=== PATIENT | male | born 1950 | race Caucasian/White ===

== ENCOUNTER 2019-09-28 10:11 | Outpatient (CLI) | payer MEDICARE, BC, SELFPAY | END 2019-09-28 10:12 | disposition home or self-care (01) | PROVIDERS: Visit Provider Internal Medicine | DX: C85.90 Non-Hodgkin lymphoma, unspecified, unspecified site (principal); Z53.9 Procedure and treatment not carried out, unspecified reason | CPT/HCPCS: 99199 ==

== ENCOUNTER 2019-11-19 15:01 | Emergency (ER) | payer MEDICARE, BC, SELFPAY ==
--- NOTE | 2019-11-19 15:05 | ECG_ITS ---
Measurements Intervals [place] Rate: 59 P: -11 GA: 134 QRS: 14 QRSD: 98 T: 74 QT: 406 QTc: 403 Interpretive Statements SINUS BRADYCARDIA BORDERLINE ST-T WAVE ABNORMALITY- LATERAL LEADS BASELINE ARTIFACT- I, II, III, AVR, AVL, AVF, V1-V6 BORDERLINE ECG Electronically Signed On 11-20-2019 6:53:40 CRYSTAL LAPPER by Toby Matias D.O.
[2019-11-19 15:13] VITALS: BP 167/96; PULSE 65; RESP 16; TEMP 36.8; O2SAT 97
--- NOTE | 2019-11-19 15:39 | ED.GENADULT ---
HPI - General Adult General Chief complaint: Headache Stated complaint: dizzy, headache, nausea, vomitting History of Present Illness HPI narrative: 69 y.o. c/o pounding bitemporal headache, rated 8/10 associated with nausea, anorexia and photophobia, resembles previous migraines. No visual disturbances. Onset 2-3 days ago, mild, progressively worsened. Has had diarrhea x 4 days, ~ 4 BMs/day, no mucous or blood. For the past 3 days he has felt woozy and unsteady. Denies dizziness. Related Data Home Medications Medication Instructions Recorded Confirmed aripiprazole 10 mg PO DAILY 10/12/19 10/12/19 buspirone 10 mg PO TID 10/12/19 10/12/19 carvedilol [Coreg] 3.125 mg PO BID 10/12/19 10/12/19 ipratropium-albuterol 3 ml INHALATION Q6H PRN 10/12/19 10/12/19 lisinopril 5 mg PO DAILY 10/12/19 10/12/19 lovastatin 40 mg PO DAILY 10/12/19 10/12/19 oxycodone-acetaminophen 1 tablet PO Q4H PRN 10/12/19 10/12/19 tizanidine 2 mg PO Q6H PRN 10/12/19 10/12/19 topiramate 200 mg PO DAILY 10/12/19 10/12/19 warfarin 3 mg PO DAILY 10/12/19 10/12/19 warfarin 10 mg PO DAILY 10/12/19 10/12/19 Allergies Allergy/AdvReac Type Severity Reaction Status Date / Time No Known Allergies Allergy Mild Unverified 08/24/17 14:42 Review of Systems Constitutional: Constitutional: Reports fatigue, Denies fever(s) and Reports weakness Eyes: Eyes: Denies change in vision ENT: Denies dysphagia and Denies nasal congestion Cardiovascular: Cardiovascular: Denies chest pain and Denies radiating jaw, neck or arm pain Respiratory: Respiratory: Reports cough (chronic cough, no recent change. ) and Denies dyspnea Gastrointestinal: Gastrointestinal: Reports abdominal pain (Chronic, recurrent suprapubic pain x months. No recent change. ) Genitourinary: Genitourinary: Denies dysuria and Reports urinary frequency (urinates about every hour at night. ) Musculoskeletal: Comments: Chronic neck and low back pain secondary to DDD. Chronic knee pain. Scheduled steroid injection for next week. Followed in pain clinic. Integumentary/Breasts: Skin/Breast: Denies rash Neurologic: Denies focal weakness and Denies numbness Psychiatric: Comments: Has had some depression attributed to financial problems. Denies suicidal ideation Endocrine: Comments: Hx of Type 2 DM, controlled with wt. loss. Blood sugars range around 120-130. [facility] Past Medical History Medical History (Updated 11/19/19 @ 17:32 by Jose Wilson MD) DDD (degenerative disc disease), cervical DDD (degenerative disc disease), lumbar Depression DVT (deep venous thrombosis) Hyperlipidemia Hypertension Migraine Non-Hodgkin lymphoma Surgical History Surgical History History of laparotomy Social History Social History Social History: Lives alone in an apartment Years smoked: 55 Exam Const: General: alert Orientation/consciousness: patient oriented x3 HENMT: Head: normal to inspection Face and sinus: sinus tenderness (minor medial maxillary sinus tenderness. No temporal artery tenderness. ) Eyes: Pupils: Equal, round and reactive pupils present Direct Ophthalmoscopy: no photophobia and photophobia Neck: Neck: no lymphadenopathy Other: Tender along cervical paraspinal muscles. Able to rotate head ~ 60 degrees without c/o pain. Chest: Chest palpation & inspection: normal inspection of the chest Resp: Effort & Inspection: normal respiratory effort Auscultation: clear to auscultation bilaterally Cardio: Rhythm: regular rhythm Heart sounds: Murmur heart sound present ( ) systolic mid, soft, II/, at the apex, at the base and at the left sternal border GI: GI Palp: Yes Soft to palpation, Yes Tenderness to palpation present (GI) (deep palpation, suprapubic area. ) and No Rebound tenderness present Other: no masses Back/Spine/Pelvis: Back: no CVA tenderness Skin: General sk
[2019-11-19] MEDS: SODIUM CHLORIDE 0.9% IV 1,000 ML 999 ML IV CONT (15:43)
[2019-11-19] MEDS: METOCLOPRAMIDE HCL INJ 10 MG/2 ML VIAL 20 MG IV PUSH (15:44)
[2019-11-19 15:47] LABS: Basophils Absolute Auto 0.05 K/mm3 (0.00-0.10); Basophils Percent Auto 0.8 % (0.0-1.0); Eosinophils Absolute Auto 0.18 K/mm3 (0.02-0.50); Eosinophils Percent Auto 2.8 % (1.0-6.0); Hematocrit 42.3 % (37.0-46.0); Hemoglobin 14.8 g/dL (12.4-15.3); Immature Granulocyte Absolute 0.03 K/mm3 (0.00-0.00); Immature Granulocyte Percent A 0.5 % (0.0-0.0); Lymphocytes Absolute Auto 0.98 K/mm3 (1.10-4.50); Lymphocytes Percent Auto 15.2 % (18.0-42.0); Mean Corpuscular Hemoglobin 31.3 pg (27.0-31.0); Mean Corpuscular Volume 89.4 fL (78.0-102.0); Mean Platelet Volume 10.9 fl (8.7-11.0); Monocytes Absolute Auto 0.67 K/mm3 (0.10-0.90); Monocytes Percent Auto 10.4 % (2.0-11.0); Neutrophils Absolute Auto 4.5 K/mm3 (1.7-7.2); Neutrophils Percent Auto 70.3 % (50.0-70.0); Platelet Count Result 129 K/mm3 (150-420); Red Blood Count 4.73 M/mm3 (4.70-6.10); Red Cell Distribution Width 13.4 % (11.6-14.4); White Blood Count 6.4 K/mm3 (4.8-10.8)
[2019-11-19 16:07] LABS: Add Urine Microscopic? YES; Appearance Urine Clear (Clear); Bilirubin Urine Negative (Negative); Blood Urine 2+ (Negative); Color Urine Yellow (Yellow); Glucose Urine UA Negative (Negative); Ketones Urine Negative (Negative); Leukocyte Esterase Ur Negative (Negative); Nitrate Urine Negative (Negative); Protein Urine Negative (Negative); Urobilinogen Urine 0.2 mg/dL (0.2-1.0)
[2019-11-19 16:08] LABS: Anion Gap 14.5 mmol/L (7-16); Blood Urea Nitrogen 12 mg/dL (7-18); Carbon Dioxide 26 mmol/L (21-32); Chloride 108 mmol/L (98-108); Estimated Glomerular Filt Rate 59; Glucose 100 mg/dL (70-99); Osmolality Calculated 299 mOsm/kg (285-295); Potassium 3.5 mmol/L (3.5-5.1); Sodium 145 mmol/L (136-145)
[2019-11-19 16:11] LABS: Troponin I < 0.02 ng/mL (0.00-0.056)
[2019-11-19 16:14] LABS: RBC Urine 0-2 /hpf (0-2); WBC Urine 0-3 /hpf (0-3)
[2019-11-19 16:15] LABS: Transitional Epi Cells Urine Few /hpf
[2019-11-19] MEDS: METOCLOPRAMIDE HCL INJ 10 MG/2 ML VIAL IV PUSH (16:40)
[2019-11-19 16:49] VITALS: BP 166/87; PULSE 62; O2SAT 95
[2019-11-19] MEDS: CYCLOBENZAPRINE HCL 5 MG TABLET PO (17:38)
[2019-11-19 17:45] VITALS: BP 139/67; PULSE 63; O2SAT 97
== END 2019-11-19 17:46 | disposition home or self-care (01) ==
PROVIDERS: Emergency Provider Family Medicine; PCP Internal Medicine
DX: R11.0 Nausea (principal); G44.89 Other headache syndrome; Z86.718 Personal history of other venous thrombosis and embolism; Z79.01 Long term (current) use of anticoagulants; E78.5 Hyperlipidemia, unspecified; I10 Essential (primary) hypertension
CPT/HCPCS: 36415; 80048; 81001; 84484; 85025; 93005; 96361; 96374; 96375; 96376; 99283; 99284; A9270; J1200; J2765; J7030

== ENCOUNTER 2019-11-24 10:29 | Outpatient (RCR) | payer MEDICARE, SELFPAY ==
[2019-09-07 11:36] LABS: INR 1.3; Prothrombin Time 13.9 Seconds (9.64-11.0)
[2019-09-11 08:20] LABS: INR 1.6; Prothrombin Time 16.5 Seconds (9.64-11.0)
[2019-10-11 12:05] LABS: INR 2.8; Prothrombin Time 29.3 Seconds (9.64-11.0)
[2019-11-24 11:27] LABS: INR 2.8; Prothrombin Time 28.2 Seconds (9.64-11.0)
== END 2019-12-06 23:59 | disposition home or self-care (01) ==
LOC: CHSLAB 10:29
PROVIDERS: PCP Internal Medicine; Visit Provider Internal Medicine
DX: Z79.01 Long term (current) use of anticoagulants (principal)
CPT/HCPCS: 36415; 85610

== ENCOUNTER 2019-11-25 07:38 | Outpatient (CLI) | payer MEDICARE, BC, SELFPAY | END 2019-11-25 07:39 | disposition home or self-care (01) | LOC: CHSIMG 07:43 | PROVIDERS: PCP Internal Medicine | DX: Z53.8 Procedure and treatment not carried out for other reasons (principal) | CPT/HCPCS: 99199 ==

== ENCOUNTER 2019-12-06 06:35 | Emergency (ER) | payer MEDICARE, BC, SELFPAY ==
[2019-12-06 06:53] VITALS: BP 182/90; PULSE 72; RESP 18; TEMP 36.6; O2SAT 97
--- NOTE | 2019-12-06 07:06 | ED.DENTAL ---
HPI - Dental/Oral General Chief complaint: Dental/Oral Stated complaint: gums still bleeding from teeth extraction Time Seen by Provider: 12/06/19 07:06 Source: patient and RN notes reviewed Mode of arrival: ambulatory Limitations: no limitations History of Present Illness HPI Narrative: Mouth bleeding after dental extraction. Patient states that he did not stop his Coumadin prior to his dental procedure. Says he has been having some slow bleeding overnight. Workup was some blood on his mouth. Blood on his clothes. He says his Coumadin level has been stable for several months. Onset (ago): hour(s) (12) Duration: constant (slow bleeding) Severity: mild Context: history of dental caries Related Data Home Medications Medication Instructions Recorded Confirmed aripiprazole 10 mg PO DAILY 10/12/19 12/06/19 buspirone 10 mg PO TID 10/12/19 12/06/19 carvedilol [Coreg] 3.125 mg PO BID 10/12/19 12/06/19 ipratropium-albuterol 3 ml INHALATION Q6H PRN 10/12/19 12/06/19 lisinopril 5 mg PO DAILY 10/12/19 12/06/19 oxycodone-acetaminophen 1 tablet PO Q4H PRN 10/12/19 12/06/19 tizanidine 2 mg PO Q6H PRN 10/12/19 12/06/19 topiramate 200 mg PO DAILY 10/12/19 12/06/19 warfarin 3 mg PO DAILY 10/12/19 12/06/19 warfarin 10 mg PO DAILY 10/12/19 12/06/19 Allergies Allergy/AdvReac Type Severity Reaction Status Date / Time No Known Allergies Allergy Mild Unverified 08/24/17 14:42 Review of Systems Review of Systems: All systems reviewed & are unremarkable except as noted in HPI and below PMFSH Past Medical History Medical History DDD (degenerative disc disease), cervical DDD (degenerative disc disease), lumbar Depression DVT (deep venous thrombosis) Hyperlipidemia Hypertension Migraine Non-Hodgkin lymphoma Surgical History Surgical History History of laparotomy Social History Social History Social History: Lives alone in an apartment Years smoked: 55 Exam Const: General: healthy appearing, no acute distress and alert Nutritional Appearance: well nourished and obese centrally obese Orientation/consciousness: patient oriented x3 HENMT: Head: normal to inspection Ears: hearing grossly normal bilaterally and external ears normal General nose exam: Normal external nose present Teeth and gingiva: abnormal tooth and associated gingiva Other: I removed 4 x 4 from bleeding gum on right upper canine area. Sutures are in place with a small amount of bleeding from the gum. Replaced 4 x 4 an aspiration to hold pressure by biting down. Eyes: Conjunctivae: conjunctivae normal Pupils: Equal, round and reactive pupils present EOM: EOMs intact bilaterally Neck: Neck: normal visual inspection Resp: Auscultation: rhonchi (Mild diffuse) Cardio: Rate: regular rate Rhythm: regular rhythm GI: Auscultation: normal bowel sounds Skin: General skin exam: normal color Rashes: no rashes Neuro: General: patient oriented x3, moves all extremities and no focal motor deficits Speech: normal speech Extrem: General: normal to inspection Psych: Appearance: grossly normal Mental Status: mental status grossly normal Affect: normal affect Attitude: cooperative Thought content: Yes Normal thought content present Course Course Emergency Course: Explained to patient that I am unable to place any more sutures in this area. He states that his Coumadin level is normal. Explained that he needed to see the dentist to possibly over sew this area some more. He will contact them today. If I use any cautery I may cause the sutures to break and therefore he would bleed more. Vital Signs Vital signs: Vital Signs Temperature 36.6 C 12/06/19 06:53 Pulse Rate 72 12/06/19 06:53 Respiratory Rate 18 12/06/19 06:53 Blood Pressure 182/90 H 12/06/19 06:53 Pulse Oximetry 97 02
[2019-12-06 07:19] VITALS: BP 124/67; PULSE 82; RESP 20; O2SAT 97
== END 2019-12-06 07:24 | disposition home or self-care (01) ==
PROVIDERS: Emergency Provider Emergency Medicine; PCP Internal Medicine
DX: L76.22 Postprocedural hemorrhage of skin and subcutaneous tissue following other procedure (principal)
CPT/HCPCS: 99281; 99282

== ENCOUNTER 2019-12-07 13:15 | Outpatient (CLI) | payer MEDICARE, BC, SELFPAY ==
--- NOTE | ~2019-12-07 | MR_ITS ---
EXAMINATION: MR cervical spine wo con DATE: 12/07/2019 14:44 INDICATION: Cervical radiculopathy. TECHNIQUE: Magnetic resonance imaging (MRI) of the cervical spine was performed without intravenous c ontrast. Sequences included sagittal T2-weighted FSE, sagittal T2-weighted FS FSE, sagittal T1-weight ed FSE, axial MERGE, and axial T2-weighted FSE. COMPARISON: Cervical spine MRI 08/24/2011 FINDINGS: There is kyphosis of cervical spine. There is 2 mm anterolisthesis of C7 on T1. There is ch ronic anterior wedging of T1 and T2 vertebral bodies. There is mildly decreased disc height at C3-C4 and moderately decreased disc height from C4-C5 through C6-C7. The spinal cord signal intensity is no rmal. The following disc levels are specifically discussed: C2-C3: The disc does not extend beyond the endplate margin. There is no uncovertebral joint osteoarth ritis. There is severe right and moderate left facet joint osteoarthritis. There is no neural foramin al stenosis. There is no central canal stenosis. C3-C4: The disc is bulging. There is severe bilateral uncovertebral joint osteoarthritis. There is se rinku bilateral facet joint osteoarthritis. There is moderate right and mild left neural foraminal batool nosis. There is mild central canal stenosis. C4-C5: The disc is bulging. There is severe bilateral uncovertebral joint osteoarthritis. There is mo derate right and severe left facet joint osteoarthritis. There is moderate and severe left neural for aminal stenosis. There is mild central canal stenosis with ventral indentation of the spinal cord. C5-C6: The disc is bulging. There is severe bilateral uncovertebral joint osteoarthritis. There is mi ld bilateral facet joint osteoarthritis. There is severe right and moderate left neural foraminal batool nosis. There is mild central canal stenosis. C6-C7: The disc is bulging. There is moderate bilateral uncovertebral joint osteoarthritis. There is mild bilateral facet joint osteoarthritis. There is mild left neural foraminal stenosis. There is mil d central canal stenosis. C7-T1: The disc does not extend beyond the endplate margin. There is no uncovertebral joint osteoarth ritis. There is severe bilateral facet joint osteoarthritis. There is mild bilateral neural foraminal stenosis. There is no central canal stenosis. IMPRESSION: 1. Severe cervical spondylosis, worsened from 08/24/2011. Reviewed, dictated and finalized at location A. O/VISUAL OPERATOR
== END 2019-12-07 13:16 | disposition home or self-care (01) ==
LOC: ANHIMG 13:18
PROVIDERS: PCP Internal Medicine; Visit Provider Anesthesiology
DX: M47.22 Other spondylosis with radiculopathy, cervical region (principal)
CPT/HCPCS: 72141

== ENCOUNTER 2019-12-19 13:18 | Outpatient (RCR) | payer MEDICARE, SELFPAY | END 2020-03-18 23:59 | disposition home or self-care (01) | LOC: CHSLAB 13:18 | PROVIDERS: PCP Internal Medicine; Visit Provider Internal Medicine | DX: Z79.01 Long term (current) use of anticoagulants (principal) | CPT/HCPCS: 36415; 85610 ==

== ENCOUNTER 2020-01-02 11:11 | Outpatient (CLI) | payer MEDICARE, SELFPAY ==
[2020-01-02 11:24] LABS: Basophils Absolute Auto 0.03 K/mm3 (0.00-0.10); Basophils Percent Auto 0.5 % (0.0-1.0); Eosinophils Absolute Auto 0.18 K/mm3 (0.02-0.50); Hematocrit 40.8 % (37.0-46.0); Hemoglobin 13.8 g/dL (12.4-15.3); Immature Granulocyte Absolute 0.01 K/mm3 (0.00-0.00); Immature Granulocyte Percent A 0.2 % (0.0-0.0); Lymphocytes Absolute Auto 0.82 K/mm3 (1.10-4.50); Lymphocytes Percent Auto 13.7 % (18.0-42.0); Mean Corpuscular HGB Conc 33.8 g/dL (32.0-36.0); Mean Corpuscular Hemoglobin 31.3 pg (27.0-31.0); Mean Corpuscular Volume 92.5 fL (78.0-102.0); Mean Platelet Volume 10.2 fl (8.7-11.0); Monocytes Absolute Auto 0.57 K/mm3 (0.10-0.90); Monocytes Percent Auto 9.5 % (2.0-11.0); Neutrophils Absolute Auto 4.4 K/mm3 (1.7-7.2); Neutrophils Percent Auto 73.1 % (50.0-70.0); Platelet Count Result 149 K/mm3 (150-420); Red Blood Count 4.41 M/mm3 (4.70-6.10); Red Cell Distribution Width 13.8 % (11.6-14.4)
[2020-01-02 11:42] LABS: INR 2.3
[2020-01-02 12:07] LABS: Alanine Aminotransferase 27 U/L (16-63); Albumin Level 3.5 g/dL (3.4-5.0); Alkaline Phosphatase 86 U/L (46-116); Anion Gap 10.5 mmol/L (7-16); Aspartate Amino Transferase 16 U/L (15-37); Bilirubin,Total 0.2 mg/dL (0.00-1.00); Blood Urea Nitrogen 12 mg/dL (7-18); Calcium 8.6 mg/dL (8.5-10.1); Carbon Dioxide 29 mmol/L (21-32); Chloride 107 mmol/L (98-108); Estimated Glomerular Filt Rate > 60; Glucose 88 mg/dL (70-99); Lactate Dehydrogenase 186 U/L (85-227); Osmolality Calculated 292 mOsm/kg (285-295); Potassium 4.5 mmol/L (3.5-5.1); Sodium 142 mmol/L (136-145); Total Protein 6.1 g/dL (6.4-8.2)
== END 2020-01-02 11:12 | disposition home or self-care (01) ==
LOC: CHSLAB 11:13
PROVIDERS: PCP Internal Medicine; Visit Provider Internal Medicine Hematology & Oncology
DX: Z79.01 Long term (current) use of anticoagulants (principal); C85.10 Unspecified B-cell lymphoma, unspecified site
CPT/HCPCS: 36415; 80053; 83615; 85025; 85610

== ENCOUNTER 2020-04-10 09:54 | Outpatient (CLI) | payer MEDICARE, SELFPAY ==
[2020-04-10 10:06] LABS: Basophils Absolute Auto 0.05 K/mm3 (0.00-0.10); Basophils Percent Auto 0.7 % (0.0-1.0); Eosinophils Absolute Auto 0.19 K/mm3 (0.02-0.50); Eosinophils Percent Auto 2.6 % (1.0-6.0); Hematocrit 46.8 % (37.0-46.0); Hemoglobin 15.8 g/dL (12.4-15.3); Immature Granulocyte Absolute 0.04 K/mm3 (0.00-0.00); Immature Granulocyte Percent A 0.5 % (0.0-0.0); Immature Platelet Fraction Pct 3.8 % (1.0-7.0); Lymphocytes Absolute Auto 0.99 K/mm3 (1.10-4.50); Lymphocytes Percent Auto 13.4 % (18.0-42.0); Mean Corpuscular HGB Conc 33.8 g/dL (32.0-36.0); Mean Corpuscular Hemoglobin 30.5 pg (27.0-31.0); Mean Corpuscular Volume 90.3 fL (78.0-102.0); Mean Platelet Volume 10.9 fl (8.7-11.0); Monocytes Absolute Auto 0.71 K/mm3 (0.10-0.90); Monocytes Percent Auto 9.6 % (2.0-11.0); Neutrophils Absolute Auto 5.4 K/mm3 (1.7-7.2); Neutrophils Percent Auto 73.2 % (50.0-70.0); Platelet Count Result 133 K/mm3 (150-420); Red Blood Count 5.18 M/mm3 (4.70-6.10); Red Cell Distribution Width 13.2 % (11.6-14.4); White Blood Count 7.4 K/mm3 (4.8-10.8)
[2020-04-10 11:14] LABS: Alanine Aminotransferase 33 U/L (16-63); Albumin Level 3.8 g/dL (3.4-5.0); Alkaline Phosphatase 101 U/L (46-116); Anion Gap 12.4 mmol/L (7-16); Aspartate Amino Transferase 17 U/L (15-37); Bilirubin,Total 0.3 mg/dL (0.00-1.00); Blood Urea Nitrogen 14 mg/dL (7-18); Calcium 8.8 mg/dL (8.5-10.1); Carbon Dioxide 28 mmol/L (21-32); Chloride 103 mmol/L (98-108); Estimated Glomerular Filt Rate > 60; Glucose 108 mg/dL (70-99); Lactate Dehydrogenase 218 U/L (85-227); Osmolality Calculated 289 mOsm/kg (285-295); Potassium 4.4 mmol/L (3.5-5.1); Sodium 139 mmol/L (136-145); Total Protein 6.3 g/dL (6.4-8.2)
== END 2020-04-10 09:55 | disposition home or self-care (01) ==
PROVIDERS: PCP Internal Medicine; Visit Provider Internal Medicine Hematology & Oncology
DX: C85.10 Unspecified B-cell lymphoma, unspecified site (principal)
CPT/HCPCS: 36415; 80053; 83615; 85025; 85055

== ENCOUNTER 2020-04-22 13:06 | Outpatient (RCR) | payer MEDICARE, SELFPAY ==
[2020-03-25 11:21] LABS: INR 2.1; Prothrombin Time 21.3 Seconds (9.64-11.0)
[2020-04-22 13:35] LABS: INR 4.2; Prothrombin Time 41.1 Seconds (9.64-11.0)
== END 2020-06-23 23:59 | disposition home or self-care (01) ==
LOC: CHSLAB 13:06
PROVIDERS: PCP Internal Medicine; Visit Provider Internal Medicine
DX: Z79.01 Long term (current) use of anticoagulants (principal)
CPT/HCPCS: 36415; 85610

== ENCOUNTER 2020-07-10 12:03 | Outpatient (CLI) | payer MEDICARE, BC, SELFPAY ==
--- NOTE | ~2020-07-10 | US_ITS ---
EXAMINATION: US carotid duplex BI DATE: 07/10/2020 12:31 INDICATION: Carotid stenosis TECHNIQUE: Grayscale, color Doppler, and pulsed Doppler images of the cervical carotid arteries were obtained. The degree of vessel stenosis is placed in one of the following categories: normal, <50%, 5 0-69%, >=70% but less than near-occlusion, near-occlusion, or total occlusion. Note that percent sten osis relative to normal distal artery lumen diameter is indirectly measured from velocity measurement s as described by Gaurav, et al. Radiology 2003; 229:340-346. Notes: Normal: Peak systolic velocity <125 centimeters/sec and no plaque <50%. Peak systolic velocity <125 ( EDV <40; ICA/CCA PSV ratio <2.0; used these factors only a tandem lesions or low cardiac output or co ntralateral disease) 50-69 %: PSV 125-230 (EDV 40-100; ratio 2-4) >= 70% but less than near occlusion: PSV greater than 230 (EDV > 100; ratio> 4.0) Near Occlusion: PSV that is variable; markedly narrowed lumen Occlusion: Absent flow on color/spectral Doppler and no lumen on dow scale. COMPARISON: No prior studies for comparison. . FINDINGS: RIGHT: The right common carotid artery (CCA) peak systolic velocity (PSV) is 79 cm/s. The right internal car otid artery (ICA) PSV is 77 cm/s. The right ICA end-diastolic velocity (EDV) is 15 cm/s. The right IC A/CCA PSV ratio is 1.0. The external carotid artery (ECA) PSV is 108 cm/s. There is antegrade flow in the right vertebral artery. LEFT: The left CCA PSV is 77 cm/s. The left ICA PSV is 74 cm/s. The left ICA EDV is 21 cm/s. The left ICA/C CA PSV ratio is 1.0. The ECA PSV is 110 cm/s. There is antegrade flow in the left vertebral artery. IMPRESSION: 1. Less than 50% stenosis in the right internal carotid artery by sonographic criteria. 2. Less than 50% stenosis in the left internal carotid artery by sonographic criteria. Reviewed, dictated and finalized at location B. IMPRESSION: 1. Less than 50% stenosis in the right internal carotid artery by sonographic c lisa. 2. Less than 50% stenosis in the left internal carotid artery by sonographic cr ama.
== END 2020-07-10 12:04 | disposition home or self-care (01) ==
LOC: CHSIMG 12:04
PROVIDERS: PCP Internal Medicine; Visit Provider Specialist
DX: I65.29 Occlusion and stenosis of unspecified carotid artery (principal)
CPT/HCPCS: 93880

== ENCOUNTER 2020-07-19 11:15 | Outpatient (CLI) | payer MEDICARE, BC, SELFPAY ==
--- NOTE | ~2020-07-19 | XR_ITS ---
EXAMINATION: XR chest 2V EXAM DATE: 07/19/2020 12:02 INDICATION: COPD. TECHNIQUE: Frontal and lateral projections of the chest obtained and reviewed. Comparison is made to prior examination from 04/03/2019. FINDINGS: Right-sided portacatheter, intact line. The lungs are clear. There are no pleural effusio ns. Lower thoracic kyphosis. There is no pneumothorax suspected. There are bony degenerative mustafa es. IMPRESSION: No acute cardiopulmonary findings. Reviewed, dictated and finalized at location B.
[2020-07-19 11:50] LABS: Basophils Absolute Auto 0.04 K/mm3 (0.00-0.10); Basophils Percent Auto 0.7 % (0.0-1.0); Eosinophils Absolute Auto 0.17 K/mm3 (0.02-0.50); Eosinophils Percent Auto 2.8 % (1.0-6.0); Hematocrit 44.2 % (37.0-46.0); Hemoglobin 14.9 g/dL (12.4-15.3); Immature Granulocyte Absolute 0.02 K/mm3 (0.00-0.00); Immature Granulocyte Percent A 0.3 % (0.0-0.0); Lymphocytes Absolute Auto 0.78 K/mm3 (1.10-4.50); Lymphocytes Percent Auto 12.7 % (18.0-42.0); Mean Corpuscular HGB Conc 33.7 g/dL (32.0-36.0); Mean Corpuscular Hemoglobin 30.1 pg (27.0-31.0); Mean Corpuscular Volume 89.3 fL (78.0-102.0); Mean Platelet Volume 11.1 fl (8.7-11.0); Monocytes Absolute Auto 0.55 K/mm3 (0.10-0.90); Monocytes Percent Auto 8.9 % (2.0-11.0); Neutrophils Absolute Auto 4.6 K/mm3 (1.7-7.2); Neutrophils Percent Auto 74.6 % (50.0-70.0); Platelet Count Result 146 K/mm3 (150-420); Red Blood Count 4.95 M/mm3 (4.70-6.10); Red Cell Distribution Width 13.6 % (11.6-14.4); White Blood Count 6.2 K/mm3 (4.8-10.8)
[2020-07-19 11:58] LABS: Anion Gap 8 mmol/L (8-16); Blood Urea Nitrogen 17 mg/dL (7-18); Calcium 8.9 mg/dL (8.5-10.1); Carbon Dioxide 29 mmol/L (21-32); Chloride 107 mmol/L (98-108); Estimated Glomerular Filt Rate > 60; Glucose 122 mg/dL (70-99); Osmolality Calculated 300 mOsm/kg (285-295); Potassium 3.9 mmol/L (3.5-5.1); Sodium 144 mmol/L (136-145)
[2020-07-19 12:06] LABS: INR 4.3; Prothrombin Time 42.2 Seconds (9.64-11.0)
== END 2020-07-19 11:16 | disposition home or self-care (01) ==
PROVIDERS: PCP Internal Medicine; Visit Provider Internal Medicine
DX: Z79.01 Long term (current) use of anticoagulants (principal); J44.1 Chronic obstructive pulmonary disease with (acute) exacerbation
CPT/HCPCS: 36415; 71046; 80048; 85025; 85610

== ENCOUNTER 2020-10-02 08:03 | Outpatient (CLI) | payer MEDICARE, BC, SELFPAY ==
--- NOTE | ~2020-10-02 | CT_ITS ---
EXAMINATION: CT chest abdomen pelvis w con DATE: 10/02/2020 09:08 INDICATION: B-cell lymphoma restaging TECHNIQUE: Computed tomography (CT) of the chest, abdomen, and pelvis was performed with 100 cc Omnip aque 350 intravenous contrast. Automated exposure control and iterative reconstruction technique were employed. Exam dose: 2010.12 mGy-cm total exam DLP. COMPARISON: 09/19/2019 CT chest abdomen pelvis FINDINGS: CHEST CT: There is lingular discoid atelectasis or scarring. There is mild infiltrate or atelectasis in the dependent right lower lobe at the base of the lung. There are calcified pulmonary granulomas the middle and bilateral lower lobes. There are calcified me diastinal and bilateral hilar nodes and calcified splenic granulomas. Findings are consistent with ol d granulomatous disease. No pulmonary infiltrate or consolidation or pulmonary mass lesion is noted otherwise. Normal heart size. Left ventricular hypertrophy. There is coronary artery calcification. There is aor tic and great vessel calcification. No thoracic aortic aneurysm or dissection. No hilar or mediastinal mass lesion or lymphadenopathy. No axillary lymphadenopathy. ABDOMEN/PELVIS CT: Status post cholecystectomy. No bile duct or pancreatic duct dilatation. No hepatic, pancreatic, splenic, adrenal space-occupying mass lesion. Again noted are bilateral renal cysts, including the followin.5 cm and 8 mm exophytic stable cysts of the lower pole of the right kidney. Additional approximatel y 1 cm posterior medial lower pole right renal cysts is again noted. There is an exophytic approximately 2.2 cm mass with attenuation of approximately 69 Hounsfield units at the lateral aspect of the mid to upper left kidney. This is stable compared to 09/19/2019, previo usly attributed to hemorrhagic cyst. 11 mm lower pole left renal cyst. There are several nonobstructing left renal calculi, the largest at the lower pole, measuring approxi mately 5.2 x 7.2 mm with attenuation of 787 Hounsfield units. No ureteral calculus or hydroureteronephrosis is detected. There is prostate enlargement and calcification. There is moderate diffuse thickening of the urinary bladder wall. The bladder is relatively evacuated and there is no contrast material in the urinary bl adder lumen, limiting evaluation of the bladder. There is extensive calcification of the abdominal aorta and aortic branches. There is ectasia of the infrarenal abdominal aorta. No intraperitoneal or retroperitoneal or pelvic mass lesion or adenopathy or ascites. Normal appendix. There is diverticulosis of the colon; no CT evidence of diverticulitis. No bowel obs truction, bowel wall thickening, pneumatosis or intraperitoneal free air. There are surgical clips within the right peritoneal cavity radiopaque sutures and surgical scar silas g the right anterior parasagittal abdominal wall. Old healed rib fracture deformities. Severe degenerative disc disease of the lumbar spine, with associated mild retrolisthesis at L1-2, L2 -3.. Bilateral L5 pars interarticularis defects and grade 2 anterolisthesis and severe degenerative disc d isease at L5-S1. There are multiple compression fracture deformities including L1, T12, T11. IMPRESSION: No evidence of thoracic, abdominal or pelvic lymphadenopathy Bilateral renal cysts Nonobstructive left nephrolithiasis Diverticulosis of the colon Prostate enlargement and calcification, bladder wall thickening Reviewed, dictated and finalized at Location A. Reviewed, dictated and finalized at location A. RDOUS WASTE MANAGEMENT SPECIALIST
[2020-10-02 08:25] LABS: Estimated Glomerular Filt Rate > 60
[2020-10-02 08:31] LABS: INR 1.2; Prothrombin Time 13.6 Seconds (9.50-12.10)
== END 2020-10-02 08:04 | disposition home or self-care (01) ==
PROVIDERS: PCP Internal Medicine; Visit Provider Internal Medicine Hematology & Oncology
DX: C85.10 Unspecified B-cell lymphoma, unspecified site (principal); Z79.01 Long term (current) use of anticoagulants
CPT/HCPCS: 71260; 74177; 85610; Q9965; Q9967

== ENCOUNTER 2020-10-10 08:25 | Outpatient (CLI) | payer MEDICARE, SELFPAY ==
[2020-10-10 08:34] LABS: Basophils Absolute Auto 0.05 K/mm3 (0.00-0.10); Basophils Percent Auto 0.6 % (0.0-1.0); Eosinophils Percent Auto 2.6 % (1.0-6.0); Hematocrit 45.1 % (37.0-46.0); Hemoglobin 14.7 g/dL (12.4-15.3); Immature Granulocyte Absolute 0.04 K/mm3 (0.00-0.00); Immature Granulocyte Percent A 0.5 % (0.0-0.0); Lymphocytes Absolute Auto 1.33 K/mm3 (1.10-4.50); Lymphocytes Percent Auto 17.2 % (18.0-42.0); Mean Corpuscular HGB Conc 32.6 g/dL (32.0-36.0); Mean Corpuscular Hemoglobin 29.6 pg (27.0-31.0); Mean Corpuscular Volume 90.7 fL (78.0-102.0); Mean Platelet Volume 11.2 fl (8.7-11.0); Monocytes Percent Auto 10.4 % (2.0-11.0); Neutrophils Absolute Auto 5.3 K/mm3 (1.7-7.2); Neutrophils Percent Auto 68.7 % (50.0-70.0); Platelet Count Result 143 K/mm3 (150-420); Red Blood Count 4.97 M/mm3 (4.70-6.10); Red Cell Distribution Width 13.3 % (11.6-14.4); White Blood Count 7.7 K/mm3 (4.8-10.8)
[2020-10-10 09:32] LABS: Alanine Aminotransferase 28 U/L (16-63); Albumin Level 3.8 g/dL (3.4-5.0); Alkaline Phosphatase 78 U/L (46-116); Anion Gap 6 mmol/L (8-16); Aspartate Amino Transferase 15 U/L (15-37); Bilirubin,Total 0.3 mg/dL (0.00-1.00); Blood Urea Nitrogen 12 mg/dL (7-18); Calcium 8.8 mg/dL (8.5-10.1); Carbon Dioxide 29 mmol/L (21-32); Chloride 105 mmol/L (98-108); Estimated Glomerular Filt Rate > 60; Glucose 81 mg/dL (70-99); Lactate Dehydrogenase 216 U/L (85-227); Osmolality Calculated 288 mOsm/kg (285-295); Potassium 4.5 mmol/L (3.5-5.1); Sodium 140 mmol/L (136-145); Total Protein 6.6 g/dL (6.4-8.2)
== END 2020-10-10 08:26 | disposition home or self-care (01) ==
LOC: CHSLAB 08:26
PROVIDERS: PCP Internal Medicine; Visit Provider Internal Medicine Hematology & Oncology
DX: C85.10 Unspecified B-cell lymphoma, unspecified site (principal)
CPT/HCPCS: 36415; 80053; 83615; 85025

== ENCOUNTER 2020-10-15 07:10 | Outpatient (CLI) | payer MEDICARE, SELFPAY ==
[2020-10-15 07:30] LABS: Basophils Absolute Auto 0.04 K/mm3 (0.00-0.10); Basophils Percent Auto 0.5 % (0.0-1.0); Eosinophils Absolute Auto 0.14 K/mm3 (0.02-0.50); Eosinophils Percent Auto 1.8 % (1.0-6.0); Hematocrit 45.8 % (37.0-46.0); Hemoglobin 15.2 g/dL (12.4-15.3); Immature Granulocyte Absolute 0.03 K/mm3 (0.00-0.00); Immature Granulocyte Percent A 0.4 % (0.0-0.0); Lymphocytes Absolute Auto 0.97 K/mm3 (1.10-4.50); Lymphocytes Percent Auto 12.7 % (18.0-42.0); Mean Corpuscular HGB Conc 33.2 g/dL (32.0-36.0); Mean Corpuscular Hemoglobin 29.6 pg (27.0-31.0); Mean Corpuscular Volume 89.3 fL (78.0-102.0); Mean Platelet Volume 11.1 fl (8.7-11.0); Monocytes Absolute Auto 0.61 K/mm3 (0.10-0.90); Neutrophils Absolute Auto 5.9 K/mm3 (1.7-7.2); Neutrophils Percent Auto 76.6 % (50.0-70.0); Platelet Count Result 128 K/mm3 (150-420); Red Blood Count 5.13 M/mm3 (4.70-6.10); Red Cell Distribution Width 13.3 % (11.6-14.4); White Blood Count 7.7 K/mm3 (4.8-10.8)
[2020-10-15 07:33] LABS: Appearance Urine Clear (Clear); Bilirubin Urine Negative (Negative); Color Urine Yellow (Yellow); Glucose Urine UA Negative (Negative); Ketones Urine Negative (Negative); Leukocyte Esterase Ur Negative (Negative); Nitrate Urine Negative (Negative); Protein Urine Negative (Negative); Specific Grav Ur 1.015 (1.010-1.020); Urobilinogen Urine 0.2 mg/dL (0.2-1.0); pH Urine 7.5 (5.0-8.0)
[2020-10-15 07:38] LABS: Hemoglobin A1C 5.6 % (<5.7)
[2020-10-15 07:41] LABS: Add Urine Microscopic? YES; Bacteria Urine None seen /hpf; Blood Urine Trace-Intact (Negative); Creatinine Urine 91.37 mg/dL (40-278); INR 1.2; MALB Creatinine Ratio 105.7 mg/g (0-30); Microalbumin Urine Random 96.6 mg/L; Prothrombin Time 13.6 Seconds (9.50-12.10); RBC Urine 0-2 /hpf (0-2); WBC Urine 0-3 /hpf (0-3)
[2020-10-15 09:04] LABS: Alanine Aminotransferase 28 U/L (16-63); Albumin Level 3.9 g/dL (3.4-5.0); Alkaline Phosphatase 81 U/L (46-116); Anion Gap 9 mmol/L (8-16); Aspartate Amino Transferase 13 U/L (15-37); Bilirubin,Total 0.5 mg/dL (0.00-1.00); Blood Urea Nitrogen 10 mg/dL (7-18); Carbon Dioxide 27 mmol/L (21-32); Chloride 105 mmol/L (98-108); Cholesterol 163 mg/dL (0-200); Creatine Kinase 119 U/L (39-308); Estimated Glomerular Filt Rate > 60; Glucose 108 mg/dL (70-99); HDL Direct 47 mg/dL (40-60); LDL Cholesterol Calculated 90 mg/dL (<130); Osmolality Calculated 292 mOsm/kg (285-295); Potassium 3.9 mmol/L (3.5-5.1); Sodium 141 mmol/L (136-145); Total Protein 6.6 g/dL (6.4-8.2); Triglycerides 131 mg/dL (0-150)
== END 2020-10-15 07:11 | disposition home or self-care (01) ==
LOC: CHSLAB 07:12
PROVIDERS: PCP Internal Medicine; Visit Provider Internal Medicine
DX: E11.40 Type 2 diabetes mellitus with diabetic neuropathy, unspecified (principal); E78.2 Mixed hyperlipidemia; I10 Essential (primary) hypertension; G62.9 Polyneuropathy, unspecified; Z12.5 Encounter for screening for malignant neoplasm of prostate; Z79.01 Long term (current) use of anticoagulants
CPT/HCPCS: 36415; 80053; 80061; 81001; 82043; 82550; 83036; 84153; 85025; 85610; G0103

== ENCOUNTER 2020-11-12 08:42 | Outpatient (RCR) | payer MEDICARE, SELFPAY ==
[2020-10-24 09:06] LABS: INR 1.8; Prothrombin Time 18.8 Seconds (9.50-12.10)
[2020-11-12 09:05] LABS: INR 1.9; Prothrombin Time 19.8 Seconds (9.50-12.10)
== END 2021-01-22 23:59 | disposition home or self-care (01) ==
LOC: CHSLAB 08:42
PROVIDERS: PCP Internal Medicine; Visit Provider Internal Medicine
DX: Z79.01 Long term (current) use of anticoagulants (principal)
CPT/HCPCS: 36415; 85610

== ENCOUNTER 2021-03-25 12:06 | Outpatient (CLI) | payer MEDICARE, BC, SELFPAY ==
--- NOTE | ~2021-03-25 | XR_ITS ---
EXAMINATION: XR knee LT min 4V DATE: 03/25/2021 12:50 INDICATION: Left knee pain. TECHNIQUE: 4 views of left knee with weightbearing were obtained. COMPARISON: Left knee radiographs 01/04/2014 FINDINGS: There is valgus angulation at the knee. No acute fracture. There is severe tricompartmental osteoarthritis of the knee. There is an old healed fracture of the fibular neck. There is a small kn ee joint effusion. There is an 11 mm loose body at the posterior medial aspect of the knee joint. IMPRESSION: 1. Severe left knee osteoarthritis. 2. Small left knee joint effusion with loose body. Reviewed, dictated and finalized at location A.
--- NOTE | ~2021-03-25 | XR_ITS ---
XR knee RT min 4V DATE: 03/25/2021 12:51 INDICATION: Knee pain. No known injury. TECHNIQUE: Multiple views including weightbearing COMPARISON: 01/04/2014 bilateral knees FINDINGS: There is diffuse osteopenia. There is severe tricompartment osteoarthritis, increased in severity since 01/04/2014, with near oblit eration of medial and virtual obliteration of lateral compartment joint spaces with weightbearing. Th ere is periarticular spurring at all 3 compartments as well. No fracture or dislocation, periosteal reaction or bone destruction. No obvious radiographic intra-ar ticular loose body or chondrocalcinosis. IMPRESSION: Severe tricompartment osteoarthritis Diffuse osteopenia Reviewed, dictated and finalized at location A.
== END 2021-03-25 12:07 | disposition home or self-care (01) ==
LOC: CHSIMG 12:11
PROVIDERS: PCP Internal Medicine; Visit Provider Internal Medicine
DX: M25.562 Pain in left knee (principal); M25.561 Pain in right knee
CPT/HCPCS: 73564

== ENCOUNTER 2021-04-10 07:48 | Outpatient (CLI) | payer MEDICARE, BC, SELFPAY ==
--- NOTE | ~2021-04-10 | XR_ITS ---
EXAMINATION: XR chest 2V 04/10/2021 08:40 INDICATION: Lymphoma. COPD. PROCEDURE: 2 view chest COMPARISON: Comparison to multiple prior studies sequentially, with oldest reviewed study dated 03/15. FINDINGS: No focal pneumonia, edema. The cardiomediastinal silhouette is within normal limits. There are no pleural effusions. There is no pneumothorax suspected. Heart size normal. Linear subsegment al atelectasis/scarring left midlung zone. There is a central line tip in the SVC. IMPRESSION: 1: NO ACUTE CARDIOPULMONARY DISEASE. Reviewed, dictated and finalized at location A.
[2021-04-10 08:11] LABS: Basophils Absolute Auto 0.03 K/mm3 (0.00-0.10); Basophils Percent Auto 0.6 % (0.0-1.0); Eosinophils Absolute Auto 0.11 K/mm3 (0.02-0.50); Hematocrit 44.4 % (37.0-46.0); Hemoglobin 14.5 g/dL (12.4-15.3); Immature Granulocyte Absolute 0.03 K/mm3 (0.00-0.00); Immature Granulocyte Percent A 0.6 % (0.0-0.0); Immature Platelet Fraction Pct 3.8 % (1.0-7.0); Lymphocytes Absolute Auto 0.67 K/mm3 (1.10-4.50); Lymphocytes Percent Auto 12.3 % (18.0-42.0); Mean Corpuscular HGB Conc 32.7 g/dL (32.0-36.0); Mean Corpuscular Hemoglobin 29.2 pg (27.0-31.0); Mean Corpuscular Volume 89.5 fL (78.0-102.0); Mean Platelet Volume 11.3 fl (8.7-11.0); Monocytes Absolute Auto 0.36 K/mm3 (0.10-0.90); Monocytes Percent Auto 6.6 % (2.0-11.0); Neutrophils Absolute Auto 4.2 K/mm3 (1.7-7.2); Neutrophils Percent Auto 77.9 % (50.0-70.0); Platelet Count Result 125 K/mm3 (150-420); Red Blood Count 4.96 M/mm3 (4.70-6.10); White Blood Count 5.4 K/mm3 (4.8-10.8)
[2021-04-10 08:18] LABS: Add Urine Microscopic? YES; Appearance Urine Clear (Clear); Bilirubin Urine Negative (Negative); Blood Urine 1+ (Negative); Color Urine Yellow (Yellow); Glucose Urine UA Negative (Negative); Ketones Urine Negative (Negative); Leukocyte Esterase Ur Negative (Negative); Nitrate Urine Negative (Negative); Protein Urine Negative (Negative); Urobilinogen Urine 0.2 mg/dL (0.2-1.0)
--- NOTE | 2021-04-10 08:20 | ECG_ITS ---
Measurements Intervals [place] Rate: 53 P: 22 PA: 152 QRS: 70 QRSD: 96 T: 72 QT: 418 QTc: 395 Interpretive Statements SINUS BRADYCARDIA DELAYED PRECORDIAL R/S TRANSITION HIGH LATERAL INFARCT, AGE INDETERMINATE BASELINE ARTIFACT- I, II, III ABNORMAL ECG Electronically Signed On 04-10-2021 9:48:21 CDT by Toby Matias D.O.
[2021-04-10 08:25] LABS: INR 1.6; Partial Thromboplastin Time 29.9 SEC (23.90-30.70); Prothrombin Time 16.7 Seconds (9.50-12.10)
[2021-04-10 08:41] LABS: Bacteria Urine 2+ /hpf; Squamous Epithelial Cell Urine Rare /hpf (Few); WBC Urine 0-3 /hpf (0-3)
[2021-04-10 08:42] LABS: Alanine Aminotransferase 33 U/L (16-63); Albumin Level 3.7 g/dL (3.4-5.0); Alkaline Phosphatase 74 U/L (46-116); Anion Gap 10 mmol/L (8-16); Aspartate Amino Transferase 17 U/L (15-37); Bilirubin,Total 0.4 mg/dL (0.00-1.00); Blood Urea Nitrogen 11 mg/dL (7-18); Calcium 8.8 mg/dL (8.5-10.1); Carbon Dioxide 27 mmol/L (21-32); Chloride 104 mmol/L (98-108); Estimated Glomerular Filt Rate > 60; Glucose 140 mg/dL (70-99); Osmolality Calculated 293 mOsm/kg (285-295); Potassium 3.9 mmol/L (3.5-5.1); Sodium 141 mmol/L (136-145); Total Protein 5.9 g/dL (6.4-8.2)
== END 2021-04-10 07:49 | disposition home or self-care (01) ==
PROVIDERS: PCP Internal Medicine
DX: Z01.818 Encounter for other preprocedural examination (principal); Z79.01 Long term (current) use of anticoagulants
CPT/HCPCS: 36415; 71046; 80053; 81001; 85025; 85055; 85610; 85730; 93005

== ENCOUNTER 2021-05-05 08:26 | Outpatient (CLI) | payer MEDICARE, BC, SELFPAY ==
--- NOTE | 2021-05-05 10:30 | EST_ITS ---
Patient Info Name: Delfin Cavazos Age: 70 years : 1950 Gender: Male Ht: 72 in Wt: 329 lbs BSA: 2.82 m2 HR: 50 bpm BP: 151 / 77 mmHg Heart Rhythm: Bradycardia Technical Quality: Excellent Exam Date: 05/05/2021 10:11 AM Exam Location: [facility] Patient Status: Outpatient Admit Date: 05/05/2021 Staff Ordering Physician: Lana, Joselyn Martinez APRN Attending Provider: Lana, Joselyn Martinez APRN Exercise Technologist: Magalie Terrell CRT Exercise Physician: Guerita Alcantara CEP Exam Type: CA stress harriet w NM Study Info Indications AbnormalEKG - CAD - SOB - A nuclear stress test was performed. History/Risk Factors Hypertension: Yes Dyslipidemia: Yes Chronic Lung Disease: Yes Obesity: Yes Diabetes Mellitus: Yes COPD: On Meds Tobacco Use: Current - Every Day History/Risk Factors COPD. Obesity. HTN. Diabetes. Smoker. Lung Disease. Dyslipidemia. Summary 1. 1. Negative lexiscan stress test for ischemic ST changes by ECG criteria. 2. 2. Stable hemodynamics throughout the test. 3. 3. Nuclear scan to follow and will be reported separately. Please correlate with it. Protocol: LEXISCAN Stress ECG Details Stage: REST Duration (min): 1 min : 7 sec HR (bpm): 52 SBP (mmHg): 151 DBP (mmHg): 77 Stage: REST Duration (min): 21 min : 47 sec HR (bpm): 50 SBP (mmHg): 151 DBP (mmHg): 77 Stage: STAGE 1 Duration (min): 0 min : 8 sec HR (bpm): 46 SBP (mmHg): 151 DBP (mmHg): 77 Stage: RECOVERY Duration (min): 0 min : 51 sec HR (bpm): 56 SBP (mmHg): 151 DBP (mmHg): 77 Stage: RECOVERY Duration (min): 1 min : 51 sec HR (bpm): 62 SBP (mmHg): 151 DBP (mmHg): 77 Stage: RECOVERY Duration (min): 2 min : 51 sec HR (bpm): 64 SBP (mmHg): 137 DBP (mmHg): 66 Stage: RECOVERY Duration (min): 3 min : 51 sec HR (bpm): 59 SBP (mmHg): 127 DBP (mmHg): 66 Stage: RECOVERY Duration (min): 4 min : 51 sec HR (bpm): 58 SBP (mmHg): 137 DBP (mmHg): 67 Stage: RECOVERY Duration (min): 5 min : 51 sec HR (bpm): 59 SBP (mmHg): 140 DBP (mmHg): 68 Stage: RECOVERY Duration (min): 6 min : 3 sec HR (bpm): 55 SBP (mmHg): 140 DBP (mmHg): 68 Rest HR: 50 bpm Peak HR: 67 bpm Rest Sys BP: 151 mmHg Peak Sys BP: 140 mmHg Max Pred HR: 149 bpm % Max Pred HR: 45 % Target HR: 127 bpm Max RPP: 9,380 bpm*mmHg BP Response: Resting hypertension/appropriate response Termination Reason: Completion of Protocol Cardiac Symptoms: Fatigue, Dyspnea Total Time: 0 min : 8 sec Rest Goldstein BP: 77 mmHg Peak Goldstein BP: 68 mmHg Total Dose: 0.4 mg Resting ECG Sinus bradycardia, delayed precordial R/S transition. Stress ECG No ST changes. Arrhythmias No arrhythmias were observed during the examination. Report Signatures
--- NOTE | 2021-05-05 12:53 | WPDCARIOSTRE ---
Nuclear Stress Test INDICATIONS Indications: CAD, SOB PROCEDURE Procedure Performed: Myocardial Perf Spect-Multi Procedure: Patient underwent a lexiscan stress test and immediately was injected with 33.4 mCi of cardiolyte. Multiple tomographic images were obtained. These are of fair quality. There is evidence of large size, severe anterior, anteroapical and mid-apical lateral perfusion defects. There is also a large size, moderate inferior perfusion defect. A separate resting images were obtained after patient was injected with 10.4 mCi of cardiolyte. Multiple tomographic images were obtained. These are of fair quality. There is evidence of moderate size, severe anterior defect; small size, moderate anteroapical and small size, moderate lateral defects. There is also a large size, moderate inferior perfusion defect. CONCLUSION Conclusion: 1. Abnormal myocardial perfusion imaging demonstrating per-infarct ischemia of anterior, anteroapical and lateral daugherty. In addition there is fixed inferior defects suggestive of scar or infarct. 2. Left ventriculogram demonstrates normal measured ejection fraction of 61%. No obvious wall motion abnormalities. 3. TID score is normal at 0.92.
== END 2021-05-05 08:27 | disposition home or self-care (01) ==
LOC: CHSIMG 08:28
PROVIDERS: PCP Internal Medicine; Visit Provider Internal Medicine Cardiovascular Disease
DX: I25.10 Atherosclerotic heart disease of native coronary artery without angina pectoris (principal); Z01.810 Encounter for preprocedural cardiovascular examination; R26.2 Difficulty in walking, not elsewhere classified; R06.02 Shortness of breath
CPT/HCPCS: 78452; 93017; A9502; J2785

== ENCOUNTER 2021-05-19 07:23 | Outpatient (CLI) | payer MEDICARE, BC, SELFPAY ==
[2021-05-19 07:48] LABS: Basophils Absolute Auto 0.04 K/mm3 (0.00-0.10); Basophils Percent Auto 0.6 % (0.0-1.0); Eosinophils Absolute Auto 0.15 K/mm3 (0.02-0.50); Eosinophils Percent Auto 2.3 % (1.0-6.0); Hematocrit 42.7 % (37.0-46.0); Hemoglobin 14.5 g/dL (12.4-15.3); Immature Granulocyte Absolute 0.02 K/mm3 (0.00-0.00); Immature Granulocyte Percent A 0.3 % (0.0-0.0); Immature Platelet Fraction Pct 3.9 % (1.0-7.0); Lymphocytes Absolute Auto 0.95 K/mm3 (1.10-4.50); Lymphocytes Percent Auto 14.9 % (18.0-42.0); Mean Corpuscular Hemoglobin 29.4 pg (27.0-31.0); Mean Corpuscular Volume 86.4 fL (78.0-102.0); Mean Platelet Volume 10.6 fl (8.7-11.0); Monocytes Absolute Auto 0.62 K/mm3 (0.10-0.90); Monocytes Percent Auto 9.7 % (2.0-11.0); Neutrophils Absolute Auto 4.6 K/mm3 (1.7-7.2); Neutrophils Percent Auto 72.2 % (50.0-70.0); Platelet Count Result 129 K/mm3 (150-420); Red Blood Count 4.94 M/mm3 (4.70-6.10); Red Cell Distribution Width 14.3 % (11.6-14.4); White Blood Count 6.4 K/mm3 (4.8-10.8)
[2021-05-19 08:13] LABS: INR 1.6; Prothrombin Time 16.2 Seconds (9.50-12.10)
[2021-05-19 09:04] LABS: Anion Gap 10 mmol/L (8-16); Blood Urea Nitrogen 15 mg/dL (7-18); Calcium 8.6 mg/dL (8.5-10.1); Carbon Dioxide 25 mmol/L (21-32); Chloride 106 mmol/L (98-108); Estimated Glomerular Filt Rate > 60; Glucose 122 mg/dL (70-99); Magnesium 2.1 mg/dL (1.8-2.4); Osmolality Calculated 293 mOsm/kg (285-295); Potassium 3.8 mmol/L (3.5-5.1); Sodium 141 mmol/L (136-145)
== END 2021-05-19 07:24 | disposition home or self-care (01) ==
LOC: CHSLAB 07:28
PROVIDERS: PCP Internal Medicine; Visit Provider Internal Medicine Cardiovascular Disease
DX: Z79.01 Long term (current) use of anticoagulants (principal); I10 Essential (primary) hypertension; I25.10 Atherosclerotic heart disease of native coronary artery without angina pectoris; R06.02 Shortness of breath; I47.1 Supraventricular tachycardia
CPT/HCPCS: 36415; 80048; 83735; 85025; 85055; 85610

== ENCOUNTER 2021-07-09 07:43 | Emergency (ER) | payer MEDICARE, BC, SELFPAY ==
[2021-07-09] VITALS (10 sets, daily range): BP systolic 96–138; BP diastolic 63–100; PULSE 60–166; RESP 20; TEMP 36.6; O2SAT 97–98
--- NOTE | ~2021-07-09 | XR_ITS ---
EXAMINATION: XR chest 1V portable EXAM DATE: 07/09/2021 08:16 INDICATION: Chest pain. Shortness of breath. TECHNIQUE: Frontal and lateral projections of the chest obtained and reviewed. Comparison is made to prior examination from 04/10/2021. FINDINGS: There is right-sided portacatheter overlying expected position. The lungs are clear. Ther e are no pleural effusions. The cardiomediastinal silhouette is within normal limits. There is no p neumothorax suspected. The bones and soft tissues are unremarkable. IMPRESSION: No acute cardiopulmonary findings. Reviewed, dictated and finalized at location B.
--- NOTE | ~2021-07-09 | CT_ITS ---
EXAMINATION: CT diagnostic chest wo con EXAM DATE: 07/09/2021 09:05 INDICATION: sob pain @ center of chest today with shortness of breath. TECHNIQUE: Spiral CT of the chest without contrast. Axial, coronal and sagittal images of the chest were reviewed. Coronal maximum intensity pixel images of chest reviewed. The dose-length product ( DLP) for this examination was 1024.66 mGy-cm. The exposure was tailored according to patient size (a uto mA exposure control), and iterative reconstruction (ASIR) was used as additional dose reduction t echnique. Comparison is made to prior examination from . FINDINGS: Chronic lingular medial atelectasis or scarring unchanged. The main, central pulmonary art eries are dilated which can indicate elevated pulmonary arterial pressure, pulmonary arterial hyperte nsion. There are no pleural or pericardial effusions. Tracheobronchial tree is patent. There is no mediastinal, hilar or axillary lymphadenopathy. There is no pneumothorax. Heart normal in siz e. There is moderate to severe coronary arterial calcification, arterial sclerosis. Right renal ho mogeneous hyperdense lesion at 85 Hounsfield units, measuring 2.6 cm, likely hemorrhagic cyst. There are cholecystectomy clips. Advanced thoracolumbar spondylosis. IMPRESSION: 1. Dense coronary arteries; consider cardiology consult if not recently evaluated. 2. Chronic lingular scarring/atelectasis. 3. Pulmonary arterial hypertension. Reviewed, dictated and finalized at location B. IMPRESSION: 1. Dense coronary arteries; consider cardiology consult if not recently evalua hemant. 2. Chronic lingular scarring/atelectasis. 3. Pulmonary arterial hypertension.
--- NOTE | 2021-07-09 07:55 | ECG_ITS ---
Measurements Intervals [place] Rate: 159 P: NM: 0 QRS: 42 QRSD: 90 T: 86 QT: 282 QTc: 459 Interpretive Statements ATRIAL FIBRILLATION WITH RAPID VENTRICULAR RESPONSE VENTRICULAR PREMATURE COMPLEX DELAYED PRECORDIAL R/S TRANSITION ST ABNORMALITY IN INF/LAT LEADS- CONSIDER ISCHEMIA BASELINE ARTIFACT- I, III, AVR, AVL, AVF ABNORMAL ECG Electronically Signed On 07-09-2021 20:19:41 CDT by Toby Matias D.O.
[2021-07-09 08:12] LABS: Basophils Absolute Auto 0.04 K/mm3 (0.00-0.10); Basophils Percent Auto 0.7 % (0.0-1.0); Eosinophils Absolute Auto 0.12 K/mm3 (0.02-0.50); Eosinophils Percent Auto 2.1 % (1.0-6.0); Hematocrit 47.3 % (37.0-46.0); Hemoglobin 15.8 g/dL (12.4-15.3); Immature Granulocyte Absolute 0.02 K/mm3 (0.00-0.00); Immature Granulocyte Percent A 0.4 % (0.0-0.0); Lymphocytes Absolute Auto 0.94 K/mm3 (1.10-4.50); Lymphocytes Percent Auto 16.7 % (18.0-42.0); Mean Corpuscular HGB Conc 33.4 g/dL (32.0-36.0); Mean Corpuscular Hemoglobin 29.3 pg (27.0-31.0); Mean Corpuscular Volume 87.8 fL (78.0-102.0); Mean Platelet Volume 10.7 fl (8.7-11.0); Monocytes Absolute Auto 0.48 K/mm3 (0.10-0.90); Monocytes Percent Auto 8.5 % (2.0-11.0); Neutrophils Percent Auto 71.6 % (50.0-70.0); Platelet Count Result 141 K/mm3 (150-420); Red Blood Count 5.39 M/mm3 (4.70-6.10); Red Cell Distribution Width 13.8 % (11.6-14.4); White Blood Count 5.6 K/mm3 (4.8-10.8)
[2021-07-09] MEDS: METOPROLOL TARTRATE INJ 5 MG/5 ML VIAL 2.5 MG IV PUSH ×2 (08:12→08:37)
[2021-07-09] MEDS: SODIUM CHLORIDE 0.9% IV 500 ML 999 ML IV CONT ×2 (08:13→09:43)
[2021-07-09] MEDS: ASPIRIN 325 MG ENTERIC TABLET PO (08:13)
[2021-07-09 08:24] LABS: Base Excess ABG 0.1 mmol/L (0-2); Oxygen Saturation ABG 95.5 % (95-97); Oxyhemoglobin 93.8 % (94-100); PCO2 ABG 37.1 mmHg (35-45); PO2 ABG 78.2 mmHg (75-85); Total Hemoglobin 15.9 g/dL (12.0-18.0); pH ABG 7.43 (7.35-7.45)
[2021-07-09 08:29] LABS: Alanine Aminotransferase 34 U/L (16-63); Albumin Level 3.5 g/dL (3.4-5.0); Alkaline Phosphatase 70 U/L (46-116); Anion Gap 13 mmol/L (8-16); Aspartate Amino Transferase 15 U/L (15-37); Bilirubin,Total 0.4 mg/dL (0.00-1.00); Blood Urea Nitrogen 19 mg/dL (7-18); Calcium 8.4 mg/dL (8.5-10.1); Carbon Dioxide 25 mmol/L (21-32); Chloride 107 mmol/L (98-108); Estimated Glomerular Filt Rate > 60; Glucose 220 mg/dL (70-99); Osmolality Calculated 309 mOsm/kg (285-295); Potassium 3.7 mmol/L (3.5-5.1); Sodium 145 mmol/L (136-145); Total Protein 6.4 g/dL (6.4-8.2); Troponin I 30.6 ng/L (0.00-60.4)
[2021-07-09 08:30] LABS: Device ROOM AIR; Modified Allen's Test Pass; Site Drawn LEFT RADIAL
[2021-07-09 08:31] LABS: INR 2.9; Partial Thromboplastin Time 38.4 SEC (23.90-30.70); Prothrombin Time 29.5 Seconds (9.50-12.10)
[2021-07-09 08:40] LABS: SARS-CoV-2 Ag Negative (Negative)
--- NOTE | 2021-07-09 08:44 | ED.CHESTPAIN ---
HPI - Chest Pain General Chief Complaint: Chest Pain Stated Complaint: THINKS HES HAVING A HEART ATTACK Time Seen by Provider: 07/09/21 07:45 Source: patient and RN notes reviewed Mode of arrival: ambulatory Limitations: no limitations History of Present Illness complaint: chest pain Pertinent past history: coronary artery disease and other (awaiting cardiac stent placement in July 2021.) Onset (ago): hour(s) (3) Timing of current episode: constant Prior episodes: Yes Onset: during rest and awoke with symptoms Pain location: left chest Pain radiation: none Severity: mild Pain scale (0-10): 3 Quality: tightness and heaviness Relieving factors: nothing Exacerbating factors: nothing Treatment prior to arrival: none Risk Factors Coronary artery disease risk factors: hypertension Thoracic aortic dissection risk factors: none Pulmonary embolism risk factors: history of deep vein thrombosis Related Data Home Medications Medication Instructions Recorded Confirmed aripiprazole 10 mg PO DAILY 10/12/19 07/09/21 carvedilol [Coreg] 3.125 mg PO BID 10/12/19 07/09/21 ipratropium-albuterol 3 ml INHALATION Q6H PRN 10/12/19 07/09/21 lisinopril 5 mg PO DAILY 10/12/19 07/09/21 tizanidine 2 mg PO Q6H PRN 10/12/19 07/09/21 warfarin 8 mg PO DAILY 07/09/21 07/09/21 Allergies Allergy/AdvReac Type Severity Reaction Status Date / Time No Known Allergies Allergy Mild Unverified 08/24/17 14:42 Review of Systems Review of Systems: All systems reviewed & are unremarkable except as noted in HPI and below Cardiovascular: Cardiovascular: Reports chest pain, Reports rapid heart rate and Reports dyspnea Respiratory: Respiratory: Reports dyspnea [facility] Past Medical History Medical History (Updated 07/09/21 @ 11:17 by Tasha Luna MD) DDD (degenerative disc disease), cervical DDD (degenerative disc disease), lumbar Depression DVT (deep venous thrombosis) Hyperlipidemia Hypertension Migraine Non-Hodgkin lymphoma Surgical History Surgical History History of laparotomy Social History Social History Social History: Lives alone in an apartment Years smoked: 55 Exam Const: General: cooperative, healthy appearing, no acute distress, alert and awake Nutritional Appearance: obese Orientation/consciousness: oriented to person and patient oriented x3 HENMT: Head: normal to inspection, normocephalic and atraumatic Ears: hearing grossly normal bilaterally, external ears normal and TM's normal bilaterally General nose exam: Normal external nose present and Normal nares present Face and sinus: normal facial exam Mouth: Yes Normal oral and palatal mucosa present, Yes oropharynx normal and Yes moist mucous membranes Throat: posterior oropharynx normal Eyes: General: appearance normal, both eyes and all related structures Eyelids: eyelids normal Conjunctivae: conjunctivae normal Sclera: sclerae normal Cornea: corneas normal Pupils: Equal, round and reactive pupils present EOM: EOMs intact bilaterally Course Course Emergency Course: Pt tachycardia and afib were txed and pt was pain-free in the ED. He was d/w Doris Aguillon and [place] and accepted for transfer to [facility] in [place]. Reevaluation(s) Date: 07/09/21 Time: 08:41 Vital Signs Vital signs: Vital Signs Temperature 36.6 C 07/09/21 07:45 Pulse Rate 156 H 07/09/21 07:45 Respiratory Rate 20 07/09/21 07:45 Blood Pressure 134/88 07/09/21 07:45 Pulse Oximetry 98 07/09/21 07:45 Temperature 36.6 C 07/09/21 11:32 Pulse Rate 68 07/09/21 11:32 Respiratory Rate 20 07/09/21 11:32 Blood Pressure 96/64 L 07/09/21 11:32 Pulse Oximetry 98 07/09/21 11:32 MDM - Chest Pain Differential Diagnosis Differential diagnosis: Likely unstable angina pectoris, chest pain and other (new onset atrial fibrillation) Medical Pedro Pablo
[2021-07-09] MEDS: SODIUM CHLORIDE 0.9% IV 1,000 ML 100 ML IV CONT (09:19)
[2021-07-09] MEDS: dilTIAZem HCl INJ 25 MG/5 ML VIAL 20 MG IV PUSH (09:33)
--- NOTE | 2021-07-09 11:28 | PC.NURSE ---
REPORT TO GUANACO FOSTER--PT SITTING UP IN BEDSIDE CHAIR.
--- NOTE | 2021-07-09 12:00 | PC.NURSE ---
report to fercho [facility]
[2021-07-09] MEDS: HEPARIN SODIUM 5,000 UNITS/ML VIAL 4000 UNITS IV PUSH (12:23)
[2021-07-09] MEDS: HEPARIN SOD/D5W 100 UNITS/ML 25,000 UNITS/250 ML BAG 10 UNITS IV CONT (12:24)
--- NOTE | 2021-07-09 13:00 | PC.NURSE ---
see paper chart.
== END 2021-07-09 15:02 | disposition short-term general hospital (02) ==
PROVIDERS: Emergency Provider Emergency Medicine; PCP Internal Medicine
DX: I48.91 Unspecified atrial fibrillation (principal); R07.9 Chest pain, unspecified; I25.10 Atherosclerotic heart disease of native coronary artery without angina pectoris; Z20.822 Contact with and (suspected) exposure to COVID-19; Z86.718 Personal history of other venous thrombosis and embolism; Z79.01 Long term (current) use of anticoagulants; E78.5 Hyperlipidemia, unspecified; I10 Essential (primary) hypertension; Z87.891 Personal history of nicotine dependence
CPT/HCPCS: 36415; 36600; 71045; 71250; 80053; 82805; 84484; 85025; 85610; 85730; 87426; 93005; 96365; 96366; 96367; 96375; 99285; A9270; C9803; J1644; J2405; J7030; J7040

== ENCOUNTER 2021-07-12 08:06 | Outpatient (CLI) | payer MEDICARE, SELFPAY ==
[2021-07-12 08:38] LABS: INR 1.2; Prothrombin Time 12.8 Seconds (9.50-12.10)
== END 2021-07-12 08:07 | disposition home or self-care (01) ==
LOC: CHSLAB 08:11
PROVIDERS: PCP Internal Medicine
DX: I48.91 Unspecified atrial fibrillation (principal)
CPT/HCPCS: 36415; 85610

== ENCOUNTER 2021-07-18 08:42 | Outpatient (CLI) | payer MEDICARE, SELFPAY ==
[2021-07-18 08:58] LABS: Basophils Absolute Auto 0.04 K/mm3 (0.00-0.10); Basophils Percent Auto 0.9 % (0.0-1.0); Eosinophils Absolute Auto 0.13 K/mm3 (0.02-0.50); Eosinophils Percent Auto 2.9 % (1.0-6.0); Hematocrit 49.1 % (37.0-46.0); Immature Granulocyte Absolute 0.01 K/mm3 (0.00-0.00); Immature Granulocyte Percent A 0.2 % (0.0-0.0); Immature Platelet Fraction Pct 3.5 % (1.0-7.0); Lymphocytes Absolute Auto 1.06 K/mm3 (1.10-4.50); Lymphocytes Percent Auto 23.3 % (18.0-42.0); Mean Corpuscular HGB Conc 32.6 g/dL (32.0-36.0); Mean Corpuscular Hemoglobin 29.7 pg (27.0-31.0); Mean Corpuscular Volume 91.1 fL (78.0-102.0); Mean Platelet Volume 11.4 fl (8.7-11.0); Monocytes Absolute Auto 0.48 K/mm3 (0.10-0.90); Monocytes Percent Auto 10.6 % (2.0-11.0); Neutrophils Absolute Auto 2.8 K/mm3 (1.7-7.2); Neutrophils Percent Auto 62.1 % (50.0-70.0); Platelet Count Result 140 K/mm3 (150-420); Red Blood Count 5.39 M/mm3 (4.70-6.10); Red Cell Distribution Width 13.7 % (11.6-14.4); White Blood Count 4.5 K/mm3 (4.8-10.8)
[2021-07-18 09:53] LABS: Anion Gap 9 mmol/L (8-16); Blood Urea Nitrogen 16 mg/dL (7-18); Calcium 8.7 mg/dL (8.5-10.1); Carbon Dioxide 28 mmol/L (21-32); Chloride 107 mmol/L (98-108); Estimated Glomerular Filt Rate > 60; Glucose 125 mg/dL (70-99); Osmolality Calculated 300 mOsm/kg (285-295); Potassium 4.2 mmol/L (3.5-5.1); Sodium 144 mmol/L (136-145)
== END 2021-07-18 08:43 | disposition home or self-care (01) ==
LOC: CHSLAB 08:46
PROVIDERS: PCP Internal Medicine
DX: I48.91 Unspecified atrial fibrillation (principal)
CPT/HCPCS: 36415; 80048; 85025; 85055

== ENCOUNTER 2021-10-06 07:47 | Outpatient (CLI) | payer MEDICARE, BC, SELFPAY ==
--- NOTE | ~2021-10-06 | CT_ITS ---
EXAMINATION: CT soft tiss nk chst ab pel w EXAM DATE: 10/06/2021 09:15 INDICATION: B Cell Lymphoma f/u B cell lymphoma, no complaints TECHNIQUE: Spiral CT of the neck, chest, abdomen and pelvis was performed following intravenous injec tion of 100 mL Omnipaque 350. Axial, coronal and sagittal images of the neck were reviewed. Axial, coronal and sagittal images of the chest were reviewed. Coronal maximum intensity pixel images of ch est reviewed. Axial, coronal and sagittal images of the abdomen and pelvis were reviewed. The dose- length product (DLP) for this examination was 1856.89 mGy-cm. The exposure was tailored according to patient size (auto mA exposure control), and iterative reconstruction (ASIR) was used as additional dose reduction technique. Comparison is made to prior examination from 10/02/2020. FINDINGS: NECK: The thyroid gland is unremarkable. The submandibular and parotid glands are symmetric. Th ere is no cervical lymphadenopathy. There are no masses identified. The airway is unremarkable. Parapharyngeal and pre-glottic fat planes are preserved. Moderate left carotid, mild right carotid bulb arterial sclerosis. Patient has had right-sided ocular lens surgery. Visualized sinuses and mastoid air cells are well aerated. There is cervical spondylosis. CHEST: There is a right-sided Chemo-Port. No central pulmonary emboli. Lingular and left upper lobe s carring. There are no pleural or pericardial effusions. Tracheobronchial tree is patent. There i s no mediastinal, hilar or axillary lymphadenopathy. There is no pneumothorax. Heart normal in si ze. Dense coronary artery calcifications. ABDOMEN PELVIS: The liver, spleen, adrenal glands and pancreas are unremarkable. There are cholecyst ectomy clips. Portal and splenic veins are patent. Kidneys enhance symmetrically. There is no hydr onephrosis. There is left renal exophytic hemorrhagic cyst measuring 2.5 cm (correlation made with pr ior contrast and noncontrast abdomen and pelvis CT scans). There is 6 mm left inferior calyceal stone , several smaller left renal stones. No ureteral stones or hydronephrosis. There is mild prostatomega ly. The bladder is unremarkable. There is no retroperitoneal or pelvic lymphadenopathy. There is moderate scattered arteriosclerotic disease. Subumbilical abdominal wall mesh. There are no findings to suggest appendicitis. There is mild to moderate scattered colonic diverticul osis. There is no adjacent inflammatory change to suggest diverticulitis. The stomach and small andrew l are unremarkable. There is expected amount of colonic stool. No free intraperitoneal gas. Ther e are no osteoblastic or osteolytic lesions identified. Advanced thoracolumbar spondylosis, chronic c ompression fractures and chronic L5 spondylolysis, grade 2 anterolisthesis. IMPRESSION: 1. No neck, chest abdomen or pelvis lymphadenopathy. 2. Chronic findings. Reviewed, dictated and finalized at location B. R MAKER
[2021-10-06 08:26] LABS: Estimated Glomerular Filt Rate > 60
== END 2021-10-06 07:48 | disposition home or self-care (01) ==
LOC: CHSIMG 07:48
PROVIDERS: PCP Internal Medicine; Visit Provider Internal Medicine Hematology & Oncology
DX: C85.10 Unspecified B-cell lymphoma, unspecified site (principal)
CPT/HCPCS: 70491; 71260; 74177; Q9967

== ENCOUNTER 2021-10-09 10:19 | Outpatient (CLI) | payer MEDICARE, BC, SELFPAY ==
[2021-10-09 10:34] LABS: Basophils Absolute Auto 0.05 K/mm3 (0.00-0.10); Basophils Percent Auto 0.7 % (0.0-1.0); Eosinophils Percent Auto 1.3 % (1.0-6.0); Hematocrit 43.9 % (37.0-46.0); Hemoglobin 15.2 g/dL (12.4-15.3); Immature Granulocyte Absolute 0.03 K/mm3 (0.00-0.00); Immature Granulocyte Percent A 0.4 % (0.0-0.0); Lymphocytes Absolute Auto 1.25 K/mm3 (1.10-4.50); Lymphocytes Percent Auto 16.8 % (18.0-42.0); Mean Corpuscular HGB Conc 34.6 g/dL (32.0-36.0); Mean Corpuscular Hemoglobin 29.5 pg (27.0-31.0); Mean Corpuscular Volume 85.1 fL (78.0-102.0); Mean Platelet Volume 10.7 fl (8.7-11.0); Monocytes Absolute Auto 0.71 K/mm3 (0.10-0.90); Monocytes Percent Auto 9.5 % (2.0-11.0); Neutrophils Absolute Auto 5.3 K/mm3 (1.7-7.2); Neutrophils Percent Auto 71.3 % (50.0-70.0); Platelet Count Result 147 K/mm3 (150-420); Red Blood Count 5.16 M/mm3 (4.70-6.10); Red Cell Distribution Width 13.3 % (11.6-14.4); White Blood Count 7.5 K/mm3 (4.8-10.8)
[2021-10-09 10:50] LABS: INR 2.7; Prothrombin Time 27.1 Seconds (9.50-12.10)
[2021-10-09 11:13] LABS: Alanine Aminotransferase 42 U/L (16-63); Albumin Level 3.6 g/dL (3.4-5.0); Alkaline Phosphatase 87 U/L (46-116); Anion Gap 12 mmol/L (8-16); Aspartate Amino Transferase 23 U/L (15-37); Bilirubin,Total 0.4 mg/dL (0.00-1.00); Blood Urea Nitrogen 16 mg/dL (7-18); Calcium 8.8 mg/dL (8.5-10.1); Carbon Dioxide 26 mmol/L (21-32); Chloride 102 mmol/L (98-108); Estimated Glomerular Filt Rate > 60; Glucose 146 mg/dL (70-99); Osmolality Calculated 294 mOsm/kg (285-295); Potassium 3.1 mmol/L (3.5-5.1); Sodium 140 mmol/L (136-145); Total Protein 6.3 g/dL (6.4-8.2)
== END 2021-10-09 10:20 | disposition home or self-care (01) ==
LOC: CHSLAB 10:22
PROVIDERS: PCP Internal Medicine; Visit Provider Internal Medicine Hematology & Oncology
DX: C85.10 Unspecified B-cell lymphoma, unspecified site (principal); Z86.718 Personal history of other venous thrombosis and embolism
CPT/HCPCS: 36415; 80053; 85025; 85610

== ENCOUNTER 2021-11-19 08:00 | Outpatient (RCR) | payer MEDICARE, BC, SELFPAY | END 2021-11-19 14:00 | disposition home or self-care (01) | PROVIDERS: PCP Internal Medicine; Visit Provider Specialist | DX: Z95.5 Presence of coronary angioplasty implant and graft (principal) | CPT/HCPCS: 93798 ==

== ENCOUNTER 2022-02-27 10:49 | Outpatient (CLI) | payer MEDICARE, SELFPAY ==
[2022-02-27 11:36] LABS: Prothrombin Time 77.2 Seconds (9.50-12.10)
== END 2022-02-27 10:50 | disposition home or self-care (01) ==
LOC: CHSLAB 10:52
PROVIDERS: PCP Internal Medicine; Visit Provider Internal Medicine
DX: Z79.01 Long term (current) use of anticoagulants (principal); M79.89 Other specified soft tissue disorders; I82.402 Acute embolism and thrombosis of unspecified deep veins of left lower extremity
CPT/HCPCS: 36415; 85610

== ENCOUNTER 2022-03-02 08:04 | Outpatient (CLI) | payer MEDICARE, SELFPAY ==
[2022-03-02 08:35] LABS: INR 2.2; Prothrombin Time 22.4 Seconds (9.50-12.10)
== END 2022-03-02 08:05 | disposition home or self-care (01) ==
LOC: CHSLAB 08:06
PROVIDERS: PCP Internal Medicine; Visit Provider Internal Medicine
DX: I82.402 Acute embolism and thrombosis of unspecified deep veins of left lower extremity (principal); Z79.01 Long term (current) use of anticoagulants; M79.89 Other specified soft tissue disorders
CPT/HCPCS: 36415; 85610

== ENCOUNTER 2022-03-03 14:07 | Outpatient (CLI) | payer MEDICARE, BC, SELFPAY ==
--- NOTE | ~2022-03-03 | US_ITS ---
EXAMINATION: US venous doppler [facility] DATE: 03/03/2022 14:56 INDICATION: Left lower limb deep venous thrombosis presenting with bilateral lower limb swelling. Pat ient anticoagulated. TECHNIQUE: Grayscale ultrasound images without and with compression and Doppler ultrasound images of the bilateral lower extremity veins were obtained. COMPARISON: None. FINDINGS: The visualized portions of right common femoral vein, profunda (deep) femoral vein, femoral vein, pop liteal vein, posterior tibial veins, peroneal veins, gastrocnemius vein and greater saphenous vein ou tflow are patent. Noncompressible thrombus in the right soleus vein. The left femoral vein and popliteal vein are partially compressible with peripheral thrombus with per ipheral echogenic margins suggesting chronic thrombus. The visualized portions of left common femoral vein, profunda femoral vein, posterior tibial veins, peroneal veins and greater saphenous vein outfl ow are patent. IMPRESSION: 1. Occlusive appearing thrombosis in the right soleus vein. 2. Nonocclusive deep venous thrombosis with appearance suggesting this may be chronic in the left fem oral and popliteal veins. Reviewed, dictated and finalized at location A. IMPRESSION: 1. Occlusive appearing thrombosis in the right soleus vein. 2. Nonocclusive deep venous thrombosis with appearance suggesting this may be c hronic in the left femoral and popliteal veins.
== END 2022-03-03 14:08 | disposition home or self-care (01) ==
PROVIDERS: PCP Internal Medicine; Visit Provider Internal Medicine
DX: M79.89 Other specified soft tissue disorders (principal); Z79.01 Long term (current) use of anticoagulants; I82.402 Acute embolism and thrombosis of unspecified deep veins of left lower extremity
CPT/HCPCS: 93970

== ENCOUNTER 2022-03-13 08:11 | Outpatient (RCR) | payer MEDICARE, SELFPAY ==
[2022-03-06 10:42] LABS: INR 1.5; Prothrombin Time 15.4 Seconds (9.50-12.10)
[2022-03-13 08:38] LABS: INR 2.8; Prothrombin Time 28.7 Seconds (9.50-12.10)
== END 2022-06-04 23:59 | disposition home or self-care (01) ==
LOC: CHSLAB 08:11
PROVIDERS: PCP Internal Medicine; Visit Provider Internal Medicine
DX: Z79.01 Long term (current) use of anticoagulants (principal)
CPT/HCPCS: 36415; 85610

== ENCOUNTER 2022-03-20 13:27 | Inpatient (IN) | payer MEDICARE, BC, SELFPAY ==
[2022-03-20 13:30] VITALS: BMI 43.8
--- OUTSIDE RECORDS SUMMARY | 2022-03-20 13:34 | XMS_ITS | Encounter Summary ---
:1950 Author Care Team Providers Name Role Phone Dr. Alessandra Ricardo Primary Care Provider [phone] Reason for Visit Diabetic Shoe fitting Assessment and Plan 1. Peripheral neuropathy due to type 2 diabetes mellitus Patient presents for fitting of extra-d epth shoes and three pair of custom inserts. Fitted patient with the durable medical devices. Instructed patient on use/care of the shoes/inserts. Supplier standard for m given to patient. 2. Acquired hammer toes of bilateral fe et Discussion Note: None recorded.Patient educational handouts: No information available. Plan of Care Patient Instructions Patient is to gradually adjust to the d iabetic custom orthotics. They are to increase the time worn each day until ab le to wear them for an entire day. Reminders Provider Appointments None recorded. ? ? Lab None recorded. ? ? Referral None recorded. ? ? Procedures None recorded. ? ? Surgeries None recorded. ? ? Imaging None recorded. ? ? Medications Name Start Date ? ? aripiprazole 10 mg tablet ? TAKE 1 TABLET BY MOUTH EVERYDAY AT BEDTIME atorvastatin 20 mg tablet ? carvedilol 25 mg tablet ? TAKE 1 TABLET BY MOUTH TWICE A DAY clopidogrel 75 mg tablet ? doxycycline hyclate 100 mg tablet ? TAKE 1 TABLET BY MOUTH DAILY enoxaparin 100 mg/mL subcutaneous syringe ? INJECT 1 MILLILITER BY SUBCUTANEOUS ROUTE EVERY 12 HO URS furosemide 40 mg tablet ? TAKE 1 TABLET BY MOUTH EVERY DAY hydrochlorothiazide 12.5 mg tablet ? TAKE 1 TABLET BY MOUTH EVERY DAY ipratropium 0.5 mg-albuterol 3 mg (2.5 mg base)/3 mL n ebu
--- OUTSIDE RECORDS SUMMARY | 2022-03-20 13:34 | XMS_ITS | Encounter Summary ---
:1950 Author Care Team Providers Name Role Phone Dr. Alessandra Ricardo Primary Care Provider [phone] Reason for Visit Bilateral diabetic corns/calluses; Bilat eral Diabetic toenail fungus; Bilateral Diabetic Ingrown Toenails Assessment and Plan 1. Peripheral neuropathy due to type 2 diabetes mellitus 2. Peripheral circulatory disorder due to type 2 diabetes mellitus 3. Acquired keratoderma Patient presents with calluses located bilateral feet. Based on history, physical exam, and prior treatment, I recommend p aring of the hyperkeratotic lesions to a normal, healthy level. 4. Pain in right foot 5. Pain in left foot 6. Onychomycosis Patient presents with bilateral toenail fungus. Based on history, physical exam, and prior treatments, I recommend debridemen t of toenails in length and thickness. 7. Ingrowing toenail 8. Acquired hammer toes of bilateral fe et 9. Hallux valgus AND bunion Discussion Note: None recorded.Patient educational handouts: No information available. Plan of Care Reminders Provider Appointments None recorded. ? ? [...] mg tablet ? doxycycline hyclate 100 mg ta
[2022-03-20 13:46] VITALS: BP 110/62; PULSE 77; RESP 17; O2SAT 95
[2022-03-20] MEDS: HYDROcodone/acetaminophen (*CRX) 5-325 MG TABLET 2 TAB PO ×3 (15:13→23:43)
[2022-03-20 16:15] VITALS: PULSE 76; RESP 18; TEMP 37.2
[2022-03-20] MEDS: POTASSIUM CHLORIDE 10 MEQ TABLET PO (17:02)
[2022-03-20] MEDS: traZODone HCL 50 MG TABLET 100 MG PO (20:15)
[2022-03-20 20:17] VITALS: PULSE 76
[2022-03-20] MEDS: carvediloL 12.5 MG TABLET 25 MG PO (20:17)
[2022-03-20] MEDS: MELATONIN 5 MG TABLET PO (20:17)
[2022-03-20 23:54] VITALS: BP 112/59; PULSE 72; RESP 18; TEMP 36.5; O2SAT 96
[2022-03-21] MEDS: HYDROcodone/acetaminophen (*CRX) 5-325 MG TABLET 2 TAB PO ×4 (06:23→20:56)
[2022-03-21 08:00] VITALS: BP 124/74; PULSE 88; RESP 20; TEMP 37.3; O2SAT 98
[2022-03-21 08:49] VITALS: PULSE 84
[2022-03-21] MEDS: CLOPIDOGREL BISULFATE 75 MG TABLET PO (08:49)
[2022-03-21] MEDS: DOXYCYCLINE HYCLATE 100 MG TABLET PO (08:49)
[2022-03-21] MEDS: ATORVASTATIN 10 MG TABLET 20 MG PO (08:49)
[2022-03-21] MEDS: carvediloL 12.5 MG TABLET 25 MG PO ×2 (08:49→20:55)
[2022-03-21] MEDS: hydroCHLOROthiazide 12.5 MG CAPSULE PO (08:49)
[2022-03-21] MEDS: TAMSULOSIN HCL 0.4 MG CAPSULE PO (08:50)
[2022-03-21] MEDS: ARIPiprazole 10 MG TABLET PO (08:50)
[2022-03-21] MEDS: POTASSIUM CHLORIDE 10 MEQ TABLET PO ×2 (08:55→16:44)
--- NOTE | 2022-03-21 09:07 | PM.IMHP ---
H&P: HPI History of Present Illness Date/Time: 03/21/22 09:07 Chief Complaint: This is a 71-year-old male that comes from [facility] due to fall patient had osteoarthritis of the right knee and he had a fall total knee arthroscopy. Patient has a past medical history of bipolar, COPD, coronary artery disease, DVT, hyperlipidemia, hypertension, obstructive sleep apnea treated with a CPAP, and hypokalemia. Upon discharge from [facility] sodium was 136, potassium was 3.3, BUN was 16, creatinine 0.80 glucose is 127, white blood count is 7.7, hemoglobin is 11.hct is 37 4.7 platelets 127. Last x-ray is status post right knee arthroplasty without evidence of any immediate complication. Patient will be admitted to our swing bed to participate with physical therapy vitals are stable on admission call light within reach we will continue to monitor. Review of Systems Review of Systems: Pain, PVD, knee pain osteoarthritis right tka All systems reviewed & are unremarkable except as noted in HPI and below PMFSH Past Medical History Medical History DDD (degenerative disc disease), cervical DDD (degenerative disc disease), lumbar Depression DVT (deep venous thrombosis) Hyperlipidemia Hypertension Migraine Non-Hodgkin lymphoma Surgical History Surgical History History of laparotomy Social History Social History Social History: Lives alone in an apartment Smoking packs per day: 1 Smoking cigarettes per day: 20.0 Years smoked: 55 Smoking pack-years: 55.00 Smoking status: Former smoker Tobacco type: cigarettes Alcohol intake: former Substance use: current Substance use type: marijuana Spiritual care concerns: No Meds Home Medications and Allergies Home Medications Medication Instructions Recorded Confirmed Type aripiprazole 10 mg disintegrating 10 mg PO DAILY 10/12/19 03/20/22 History tablet carvedilol 3.125 mg tablet (Coreg) 25 mg PO BID 10/12/19 03/20/22 History ipratropium 0.5 mg-albuterol 3 mg 3 ml inhalation Q6H PRN Wheezing 10/12/19 03/20/22 History (2.5 mg base)/3 mL nebulization soln warfarin 5 mg PO DIRECTED afib 07/09/21 03/20/22 History atorvastatin 20 mg tablet (Lipitor) 20 mg PO DAILY 03/20/22 03/20/22 History clopidogrel 75 mg tablet (Plavix) 75 mg PO DAILY 03/20/22 03/20/22 History diclofenac sodium 1 % topical gel 4 g topical USEASDIRECTD PRN Pain 03/20/22 03/20/22 History (Voltaren Arthritis Pain) doxycycline hyclate 100 mg tablet 100 mg PO DAILY 03/20/22 03/20/22 History hydrochlorothiazide 12.5 mg tablet 12.5 mg PO DAILY 03/20/22 03/20/22 History hydrocodone 5 mg-acetaminophen 325 2 tablet PO Q4H PRN Pain 03/20/22 03/20/22 History mg tablet melatonin 5 mg tablet 5 mg PO HS 03/20/22 03/20/22 History naloxone 4 mg/actuation nasal 1 spray intranasal USEASDIRECTD 03/20/22 03/20/22 History spray (Narcan) PRN (Drug) Ingestion potassium chloride 10 mEq 10 meq PO BID 03/20/22 03/20/22 History tablet,extended release (Klor-Con) tamsulosin 0.4 mg capsule (Flomax) 0.4 mg PO DAILY 03/20/22 03/20/22 History trazodone 100 mg tablet 100 mg PO HS 03/20/22 03/20/22 History warfarin 10 mg tablet 10 mg PO USEASDIRECTD 03/20/22 03/20/22 History Allergies Allergy/AdvReac Type Severity Reaction Status Date / Time No Known Allergies Allergy Mild Unverified 08/24/17 14:42 Vital Signs Vital Signs - 24 hr 03/20/22 13:46 03/20/22 16:15 03/20/22 20:17 Temperature 98.9 F Pulse Rate 77 76 76 Respiratory Rate 17 18 Blood Pressure 110/62 Pulse Oximetry 95 Oxygen Delivery Room Air 03/20/22 23:54 03/21/22 08:49 Temperature 97.7 F Pulse Rate 72 84 Respiratory Rate 18 Blood Pressure 112/59 L Pulse Oximetry 96 Oxygen Delivery Room Air Exam Narrative: GENERAL:Well-
[2022-03-21 15:18] VITALS: BP 167/71; PULSE 67; RESP 18; TEMP 36.8; O2SAT 93
[2022-03-21 20:55] VITALS: PULSE 65
[2022-03-21] MEDS: traZODone HCL 50 MG TABLET 100 MG PO (20:55)
[2022-03-21] MEDS: MELATONIN 5 MG TABLET PO (20:55)
[2022-03-22] VITALS: BP 108/64; PULSE 69; RESP 14; TEMP 36.6; O2SAT 95
[2022-03-22] MEDS: HYDROcodone/acetaminophen (*CRX) 5-325 MG TABLET 2 TAB PO ×5 (03:44→22:35)
[2022-03-22 07:26] VITALS: BP 110/67; PULSE 67; RESP 20; TEMP 36.8; O2SAT 95
--- NOTE | 2022-03-22 07:30 | PC.NURSE ---
Upon assessment, pt in bed, assisted c use of gait belt and walker to BSC and chair for breakfast. Dressing dry and intact on Rt knee. Pt tolerated well walking c assist from bed to chair. VSS, call boyle in pt reach.
[2022-03-22 08:41] VITALS: PULSE 75
[2022-03-22] MEDS: CLOPIDOGREL BISULFATE 75 MG TABLET PO (08:41)
[2022-03-22] MEDS: carvediloL 12.5 MG TABLET 25 MG PO ×2 (08:41→20:55)
[2022-03-22] MEDS: DOXYCYCLINE HYCLATE 100 MG TABLET PO (08:42)
[2022-03-22] MEDS: ATORVASTATIN 10 MG TABLET 20 MG PO (08:42)
[2022-03-22] MEDS: TAMSULOSIN HCL 0.4 MG CAPSULE PO (08:43)
[2022-03-22] MEDS: hydroCHLOROthiazide 12.5 MG CAPSULE PO (08:43)
[2022-03-22] MEDS: POTASSIUM CHLORIDE 10 MEQ TABLET PO ×2 (08:43→16:59)
[2022-03-22] MEDS: ARIPiprazole 10 MG TABLET PO (08:52)
--- NOTE | 2022-03-22 09:45 | PC.NURSE ---
Order received from [employer] for simple dressing change to Rt knee, Old surgical drsg removed, noted well approximated and healing tissue from surgery. Scarring present. Wound cleansed c finesse-dcns dermal wound cleanser and area redressed c telfa pad and paper tape. Pt reports pain some better p given pain meds.
[2022-03-22 16:00] VITALS: BP 110/61; PULSE 84; RESP 20; TEMP 36.7; O2SAT 97
[2022-03-22] MEDS: traZODone HCL 50 MG TABLET 100 MG PO (20:54)
[2022-03-22 20:55] VITALS: PULSE 60
[2022-03-22] MEDS: MELATONIN 5 MG TABLET PO (20:58)
[2022-03-23] VITALS: BP 115/57; PULSE 60; RESP 18; TEMP 37.1; O2SAT 92
[2022-03-23] MEDS: HYDROcodone/acetaminophen (*CRX) 5-325 MG TABLET 2 TAB PO ×5 (03:11→21:25)
[2022-03-23 07:36] VITALS: BP 105/67; PULSE 63; RESP 18; TEMP 36.6; O2SAT 94
[2022-03-23 09:05] VITALS: PULSE 63
[2022-03-23] MEDS: TAMSULOSIN HCL 0.4 MG CAPSULE PO (09:05)
[2022-03-23] MEDS: ATORVASTATIN 10 MG TABLET 20 MG PO (09:05)
[2022-03-23] MEDS: CLOPIDOGREL BISULFATE 75 MG TABLET PO (09:05)
[2022-03-23] MEDS: carvediloL 12.5 MG TABLET 25 MG PO ×2 (09:05→21:02)
[2022-03-23] MEDS: hydroCHLOROthiazide 12.5 MG CAPSULE PO (09:05)
[2022-03-23] MEDS: POTASSIUM CHLORIDE 10 MEQ TABLET PO ×2 (09:06→17:48)
[2022-03-23] MEDS: ARIPiprazole 10 MG TABLET PO (09:06)
[2022-03-23] MEDS: DOXYCYCLINE HYCLATE 100 MG TABLET PO (09:06)
--- OUTSIDE RECORDS SUMMARY | 2022-03-23 09:40 | XMS_ITS | Encounter Summary ---
:1950 Author Care Team Providers Name Role Phone Dr. Alessandra Ricardo Primary Care Provider [phone] Reason for Visit Diabetic Shoe fitting Assessment [...]
--- OUTSIDE RECORDS SUMMARY | 2022-03-23 09:40 | XMS_ITS ---
:1950 Author Care Team Providers Name Role Phone DR. SHARONA NOONAN Primary Care Provider [phone] Allergies Code Code System Name Reaction Severity Status Onset NKDA ? Medications Name Status Start Date Stop Date ? ? aripiprazole 10 mg tablet Active ? Not av ailable TAKE 1 TABLET BY MOUTH EVERYDAY AT BEDTIME atorvastatin 20 mg tablet Active ? Not av ailable buspirone 10 mg tablet Completed ? carvedilol 12.5 mg tablet Completed ? 2021 carvedilol 25 mg tablet Active ? Not avai lable TAKE 1 TABLET BY MOUTH TWICE A DAY carvedilol 3.125 mg tablet Completed ? 10/30 clopidogrel 75 mg tablet Active ? Not yunior ilable diclofenac 1 % topical gel Completed ? 10/30 APPLY 4 GRAMS TO PAINFUL JOINTS 4 TIMES A DAY NEEDED FOR AYO N FOR 30 DAYS doxycycline hyclate 100 mg tablet Active ? Not available TAKE 1 TABLET BY MOUTH DAILY enoxaparin 100 mg/mL subcutaneous syringe Active ? Not available INJECT 1 MILLILITER BY SUBCUTANEOUS ROUTE EVERY 12 HOURS furosemide 40 mg tablet Active ? Not avai lable TAKE 1 TABLET BY MOUTH EVERY DAY hydrochlorothiazide 12.5 mg tablet Active ? Not available TAKE 1 TABLET BY MOUTH EVERY DAY hydromorphone 4 mg tablet Completed ? 2021 1 TABLET BY MOUTH 3 TIMES A DAY FOR SEVERE PAIN ipratropium 0.5 mg-albuterol 3 mg (2.5 mg base)/3 mL Active ? Not available nebulization soln lisinopril 20 mg tablet Completed ? 01/09/20 lovastatin 40 mg tablet Completed ? 01/09/20
--- OUTSIDE RECORDS SUMMARY | 2022-03-23 09:40 | XMS_ITS | Encounter Summary ---
:1950 Author Care Team Providers Name Role Phone Dr. Alessandra Ricardo Primary Care Provider [phone] Reason for Visit Bilateral diabetic corns/calluses; Bilat [...]
[2022-03-23 16:40] VITALS: BP 127/85; PULSE 67; RESP 18; TEMP 36.6; O2SAT 96
[2022-03-23 21:02] VITALS: PULSE 66
[2022-03-23] MEDS: traZODone HCL 50 MG TABLET 100 MG PO (21:02)
[2022-03-23] MEDS: MELATONIN 5 MG TABLET PO (21:03)
[2022-03-24] VITALS: BP 101/67; PULSE 66; RESP 14; TEMP 37.4; O2SAT 97
[2022-03-24] MEDS: HYDROcodone/acetaminophen (*CRX) 5-325 MG TABLET 2 TAB PO ×6 (01:31→22:59)
[2022-03-24 07:55] VITALS: BP 114/68; PULSE 81; RESP 18; TEMP 36.6; O2SAT 96
[2022-03-24 09:06] VITALS: PULSE 81
[2022-03-24] MEDS: ATORVASTATIN 10 MG TABLET 20 MG PO (09:06)
[2022-03-24] MEDS: carvediloL 12.5 MG TABLET 25 MG PO ×2 (09:06→21:11)
[2022-03-24] MEDS: CLOPIDOGREL BISULFATE 75 MG TABLET PO (09:07)
[2022-03-24] MEDS: ARIPiprazole 10 MG TABLET PO (09:07)
[2022-03-24] MEDS: TAMSULOSIN HCL 0.4 MG CAPSULE PO (09:07)
[2022-03-24] MEDS: hydroCHLOROthiazide 12.5 MG CAPSULE PO (09:07)
[2022-03-24] MEDS: POTASSIUM CHLORIDE 10 MEQ TABLET PO ×2 (09:07→17:56)
[2022-03-24] MEDS: DOXYCYCLINE HYCLATE 100 MG TABLET PO (09:07)
[2022-03-24 16:45] VITALS: BP 127/79; PULSE 65; RESP 18; TEMP 36.6; O2SAT 97
[2022-03-24 21:11] VITALS: PULSE 70
[2022-03-24] MEDS: traZODone HCL 50 MG TABLET 100 MG PO (21:11)
[2022-03-24] MEDS: ZOLPIDEM TARTRATE (*CRX) 5 MG TABLET 10 MG PO (21:14)
[2022-03-24] MEDS: MELATONIN 5 MG TABLET PO (21:14)
[2022-03-24 23:03] VITALS: BP 116/63; PULSE 72; RESP 17; TEMP 36.6; O2SAT 95
[2022-03-25] MEDS: HYDROcodone/acetaminophen (*CRX) 5-325 MG TABLET 2 TAB PO ×3 (03:00→11:04)
[2022-03-25 08:00] VITALS: BP 119/67; PULSE 65; RESP 16; TEMP 36.8; O2SAT 95
[2022-03-25 08:52] VITALS: PULSE 88
[2022-03-25] MEDS: carvediloL 12.5 MG TABLET 25 MG PO ×2 (08:52→20:52)
[2022-03-25] MEDS: hydroCHLOROthiazide 12.5 MG CAPSULE PO (08:52)
[2022-03-25] MEDS: POTASSIUM CHLORIDE 10 MEQ TABLET PO ×2 (08:52→16:38)
[2022-03-25] MEDS: ARIPiprazole 10 MG TABLET PO (08:52)
[2022-03-25] MEDS: DOXYCYCLINE HYCLATE 100 MG TABLET PO (08:53)
[2022-03-25] MEDS: CLOPIDOGREL BISULFATE 75 MG TABLET PO (08:53)
[2022-03-25] MEDS: TAMSULOSIN HCL 0.4 MG CAPSULE PO (08:53)
[2022-03-25] MEDS: ATORVASTATIN 10 MG TABLET 20 MG PO (08:53)
--- NOTE | 2022-03-25 11:18 | PM.EVENT ---
Event Note Event Note Event Note: Patient notes that his pain is not well controlled. He is waking up in the middle of the night due to pain .have adjusted pain medication patient will get oxycodone extended release and as needed Tylenol tramadol and [place].'s no indication of infection at surgical site.
--- NOTE | 2022-03-25 12:36 | P.PNCROSS_ITS ---
Event Note Event Note Event Note: Patient requires a wheeled walker to perform ADLs in the home due to a recent t otal knee replacement. Patient is not able to perform ADLs with a cane. Functional mobility deficiency will be sufficiently resolved by using walker. Patient is able to safely use walker and agrees to use walker.
[2022-03-25] MEDS: oxyCODONE HCL (*CRX) 10 MG TAB SR 12HR PO ×2 (13:19→20:53)
[2022-03-25 16:00] VITALS: BP 113/66; PULSE 63; RESP 18; TEMP 37; O2SAT 95
[2022-03-25] MEDS: HYDROcodone/acetaminophen (*CRX) 10-325 MG TABLET 1 TAB PO (16:38)
[2022-03-25] MEDS: MELATONIN 5 MG TABLET PO (20:51)
[2022-03-25 20:52] VITALS: PULSE 63
[2022-03-25] MEDS: traZODone HCL 50 MG TABLET 100 MG PO (20:52)
[2022-03-25 23:39] VITALS: BP 110/61; PULSE 72; RESP 18; TEMP 37.1; O2SAT 94
[2022-03-26] MEDS: HYDROcodone/acetaminophen (*CRX) 10-325 MG TABLET 1 TAB PO ×3 (03:09→18:16)
[2022-03-26 05:12] LABS: Hemoglobin 9.5 g/dL (12.4-15.3); Mean Corpuscular HGB Conc 31.7 g/dL (32.0-36.0); Mean Corpuscular Hemoglobin 29.3 pg (27.0-31.0); Mean Corpuscular Volume 92.6 fL (78.0-102.0); Mean Platelet Volume 10.4 fl (8.7-11.0); Platelet Count Result 180 K/mm3 (150-420); Red Blood Count 3.24 M/mm3 (4.70-6.10); Red Cell Distribution Width 13.9 % (11.6-14.4); White Blood Count 5.1 K/mm3 (4.8-10.8)
[2022-03-26 05:30] LABS: Alanine Aminotransferase 47 U/L (16-63); Albumin Level 2.5 g/dL (3.4-5.0); Alkaline Phosphatase 62 U/L (46-116); Anion Gap 3 mmol/L (8-16); Aspartate Amino Transferase 20 U/L (15-37); Bilirubin,Total 0.9 mg/dL (0.00-1.00); Blood Urea Nitrogen 11 mg/dL (7-18); Calcium 8.7 mg/dL (8.5-10.1); Carbon Dioxide 30 mmol/L (21-32); Chloride 104 mmol/L (98-108); Estimated CRCL calculation 100 ml/min; Estimated Glomerular Filt Rate > 60; Glucose 114 mg/dL (70-99); Osmolality Calculated 284 mOsm/kg (285-295); Sodium 137 mmol/L (136-145); Total Protein 5.6 g/dL (6.4-8.2)
[2022-03-26 08:00] VITALS: BP 114/64; PULSE 70; RESP 20; TEMP 36.6; O2SAT 96
[2022-03-26] MEDS: ARIPiprazole 10 MG TABLET PO (08:00)
[2022-03-26] MEDS: DOXYCYCLINE HYCLATE 100 MG TABLET PO (08:00)
[2022-03-26 08:01] VITALS: PULSE 74
[2022-03-26] MEDS: carvediloL 12.5 MG TABLET 25 MG PO ×2 (08:01→20:59)
[2022-03-26] MEDS: POTASSIUM CHLORIDE 10 MEQ TABLET PO ×2 (08:01→17:02)
[2022-03-26] MEDS: ATORVASTATIN 10 MG TABLET 20 MG PO (08:01)
[2022-03-26] MEDS: TAMSULOSIN HCL 0.4 MG CAPSULE PO (08:01)
[2022-03-26] MEDS: CLOPIDOGREL BISULFATE 75 MG TABLET PO (08:02)
[2022-03-26] MEDS: hydroCHLOROthiazide 12.5 MG CAPSULE PO (08:02)
[2022-03-26] MEDS: oxyCODONE HCL (*CRX) 10 MG TAB SR 12HR PO ×2 (08:03→20:59)
[2022-03-26 16:00] VITALS: BP 102/54; PULSE 78; RESP 20; TEMP 36.8; O2SAT 97
[2022-03-26 20:59] VITALS: PULSE 69
[2022-03-26] MEDS: MELATONIN 5 MG TABLET PO (20:59)
[2022-03-26] MEDS: traZODone HCL 50 MG TABLET 100 MG PO (20:59)
[2022-03-27] VITALS: BP 110/62; PULSE 61; RESP 14; TEMP 36.2; O2SAT 96
[2022-03-27] MEDS: HYDROcodone/acetaminophen (*CRX) 10-325 MG TABLET 1 TAB PO ×3 (06:27→19:03)
[2022-03-27 08:00] VITALS: BP 118/68; PULSE 68; RESP 18; TEMP 36.6; O2SAT 95
[2022-03-27] MEDS: ATORVASTATIN 10 MG TABLET 20 MG PO (08:39)
[2022-03-27] MEDS: ARIPiprazole 10 MG TABLET PO (08:39)
[2022-03-27 08:40] VITALS: PULSE 84
[2022-03-27] MEDS: carvediloL 12.5 MG TABLET 25 MG PO ×2 (08:40→21:00)
[2022-03-27] MEDS: DOXYCYCLINE HYCLATE 100 MG TABLET PO (08:40)
[2022-03-27] MEDS: CLOPIDOGREL BISULFATE 75 MG TABLET PO (08:40)
[2022-03-27] MEDS: TAMSULOSIN HCL 0.4 MG CAPSULE PO (08:40)
[2022-03-27] MEDS: POTASSIUM CHLORIDE 10 MEQ TABLET PO ×2 (08:40→16:44)
[2022-03-27] MEDS: hydroCHLOROthiazide 12.5 MG CAPSULE PO (08:40)
[2022-03-27] MEDS: oxyCODONE HCL (*CRX) 10 MG TAB SR 12HR PO ×2 (08:41→21:01)
[2022-03-27 15:40] VITALS: BP 116/73; PULSE 58; RESP 16; TEMP 36.8; O2SAT 99
[2022-03-27 21:00] VITALS: PULSE 73
[2022-03-27] MEDS: traZODone HCL 50 MG TABLET 100 MG PO (21:01)
[2022-03-27] MEDS: MELATONIN 5 MG TABLET PO (21:02)
[2022-03-27] MEDS: ZOLPIDEM TARTRATE (*CRX) 5 MG TABLET 10 MG PO (21:02)
[2022-03-27 23:06] VITALS: BP 116/61; PULSE 72; RESP 15; TEMP 36.9; O2SAT 93
[2022-03-28] MEDS: HYDROcodone/acetaminophen (*CRX) 10-325 MG TABLET 1 TAB PO ×3 (06:12→19:19)
[2022-03-28 08:00] VITALS: BP 124/74; PULSE 70; RESP 14; TEMP 37.1; O2SAT 96
[2022-03-28] MEDS: DOXYCYCLINE HYCLATE 100 MG TABLET PO (08:46)
[2022-03-28] MEDS: oxyCODONE HCL (*CRX) 10 MG TAB SR 12HR PO ×2 (08:46→20:37)
[2022-03-28] MEDS: ATORVASTATIN 10 MG TABLET 20 MG PO (08:46)
[2022-03-28] MEDS: TAMSULOSIN HCL 0.4 MG CAPSULE PO (08:46)
[2022-03-28] MEDS: hydroCHLOROthiazide 12.5 MG CAPSULE PO (08:46)
[2022-03-28] MEDS: ARIPiprazole 10 MG TABLET PO (08:46)
[2022-03-28 08:47] VITALS: PULSE 80
[2022-03-28] MEDS: CLOPIDOGREL BISULFATE 75 MG TABLET PO (08:47)
[2022-03-28] MEDS: POTASSIUM CHLORIDE 10 MEQ TABLET PO ×2 (08:47→17:36)
[2022-03-28] MEDS: carvediloL 12.5 MG TABLET 25 MG PO ×2 (08:47→20:37)
[2022-03-28 16:15] VITALS: BP 119/58; PULSE 73; RESP 18; TEMP 36.4; O2SAT 96
[2022-03-28] MEDS: MELATONIN 5 MG TABLET PO (20:36)
[2022-03-28] MEDS: traZODone HCL 50 MG TABLET 100 MG PO (20:36)
[2022-03-28] MEDS: ZOLPIDEM TARTRATE (*CRX) 5 MG TABLET 10 MG PO (20:36)
[2022-03-28 20:37] VITALS: PULSE 78
[2022-03-28 23:46] VITALS: BP 122/73; PULSE 60; RESP 18; TEMP 36.8; O2SAT 94
[2022-03-29] MEDS: HYDROcodone/acetaminophen (*CRX) 10-325 MG TABLET 1 TAB PO ×4 (02:50→21:05)
[2022-03-29 08:00] VITALS: BP 147/72; PULSE 62; RESP 16; TEMP 36.5; O2SAT 98
[2022-03-29] MEDS: ARIPiprazole 10 MG TABLET PO (08:27)
[2022-03-29 08:28] VITALS: PULSE 78
[2022-03-29] MEDS: hydroCHLOROthiazide 12.5 MG CAPSULE PO (08:28)
[2022-03-29] MEDS: POTASSIUM CHLORIDE 10 MEQ TABLET PO ×2 (08:28→17:42)
[2022-03-29] MEDS: TAMSULOSIN HCL 0.4 MG CAPSULE PO (08:28)
[2022-03-29] MEDS: carvediloL 12.5 MG TABLET 25 MG PO ×2 (08:28→21:07)
[2022-03-29] MEDS: CLOPIDOGREL BISULFATE 75 MG TABLET PO (08:29)
[2022-03-29] MEDS: DOXYCYCLINE HYCLATE 100 MG TABLET PO (08:29)
[2022-03-29] MEDS: ATORVASTATIN 10 MG TABLET 20 MG PO (08:30)
[2022-03-29] MEDS: oxyCODONE HCL (*CRX) 10 MG TAB SR 12HR PO ×2 (08:30→21:06)
[2022-03-29 16:40] VITALS: BP 106/79; PULSE 65; RESP 18; TEMP 36.5; O2SAT 95
[2022-03-29] MEDS: MELATONIN 5 MG TABLET PO (21:06)
[2022-03-29] MEDS: ZOLPIDEM TARTRATE (*CRX) 5 MG TABLET 10 MG PO (21:06)
[2022-03-29 21:07] VITALS: PULSE 80
[2022-03-29] MEDS: traZODone HCL 50 MG TABLET 100 MG PO (21:07)
[2022-03-30] VITALS: BP 132/49; PULSE 60; RESP 20; TEMP 36.5; O2SAT 97
[2022-03-30] MEDS: HYDROcodone/acetaminophen (*CRX) 10-325 MG TABLET 1 TAB PO ×3 (04:37→20:25)
[2022-03-30] MEDS: DOXYCYCLINE HYCLATE 100 MG TABLET PO (07:34)
[2022-03-30] MEDS: hydroCHLOROthiazide 12.5 MG CAPSULE PO (07:34)
[2022-03-30] MEDS: oxyCODONE HCL (*CRX) 10 MG TAB SR 12HR PO ×2 (07:34→20:25)
[2022-03-30] MEDS: ATORVASTATIN 10 MG TABLET 20 MG PO (07:34)
[2022-03-30] MEDS: ARIPiprazole 10 MG TABLET PO (07:34)
[2022-03-30 07:35] VITALS: PULSE 78
[2022-03-30] MEDS: CLOPIDOGREL BISULFATE 75 MG TABLET PO (07:35)
[2022-03-30] MEDS: TAMSULOSIN HCL 0.4 MG CAPSULE PO (07:35)
[2022-03-30] MEDS: carvediloL 12.5 MG TABLET 25 MG PO ×2 (07:35→20:24)
[2022-03-30 08:00] VITALS: BP 138/70; PULSE 60; RESP 14; TEMP 36.7; O2SAT 97
[2022-03-30] MEDS: POTASSIUM CHLORIDE 10 MEQ TABLET PO ×2 (09:19→16:26)
--- NOTE | 2022-03-30 11:17 | PCOTNOTE ---
Patient is not seen for OT treatment this AM as patient is out of facility at a doctor's apt. Patient to be seen for PM session once he returns. MS
[2022-03-30 15:06] VITALS: BP 126/71; PULSE 79; RESP 20; TEMP 36.3; O2SAT 96
[2022-03-30] MEDS: traMADol HCL (*CRX) 50 MG TABLET PO (16:26)
[2022-03-30 20:24] VITALS: PULSE 74
[2022-03-30] MEDS: ZOLPIDEM TARTRATE (*CRX) 5 MG TABLET 10 MG PO (20:25)
[2022-03-30] MEDS: traZODone HCL 50 MG TABLET 100 MG PO (20:26)
[2022-03-30] MEDS: MELATONIN 5 MG TABLET PO (20:27)
[2022-03-31] VITALS: BP 141/74; PULSE 70; RESP 18; TEMP 36.3; O2SAT 97
[2022-03-31] MEDS: HYDROcodone/acetaminophen (*CRX) 10-325 MG TABLET 1 TAB PO ×3 (02:33→16:07)
[2022-03-31 07:19] VITALS: BP 107/67; PULSE 68; RESP 20; TEMP 36.3; O2SAT 94
[2022-03-31] MEDS: TAMSULOSIN HCL 0.4 MG CAPSULE PO (08:24)
[2022-03-31] MEDS: POTASSIUM CHLORIDE 10 MEQ TABLET PO ×2 (08:24→16:07)
[2022-03-31 08:25] VITALS: PULSE 68
[2022-03-31] MEDS: carvediloL 12.5 MG TABLET 25 MG PO (08:25)
[2022-03-31] MEDS: ATORVASTATIN 10 MG TABLET 20 MG PO (08:25)
[2022-03-31] MEDS: ARIPiprazole 10 MG TABLET PO (08:26)
[2022-03-31] MEDS: CLOPIDOGREL BISULFATE 75 MG TABLET PO (08:26)
[2022-03-31] MEDS: hydroCHLOROthiazide 12.5 MG CAPSULE PO (08:27)
[2022-03-31] MEDS: oxyCODONE HCL (*CRX) 10 MG TAB SR 12HR PO (08:27)
--- NOTE | 2022-03-31 10:42 | PM.DS ---
DS: Admitting Diagnosis Discharge Date 03/31/2022 Admitting Diagnosis Rehab DS: Discharge Diagnosis Discharge Diagnosis (1) Depression: Code(s): F32.9 - Major depressive disorder, single episode, unspecified Status: Acute Assessment and Plan: Continue home medication (2) Hyperlipidemia: Code(s): E78.5 - Hyperlipidemia, unspecified Status: Acute Assessment and Plan: Stable we will continue home medications (3) DDD (degenerative disc disease), lumbar: Code(s): M51.36 - Other intervertebral disc degeneration, lumbar region Status: Acute Assessment and Plan: Continue pain medication Prevent falls (4) DDD (degenerative disc disease), cervical: Code(s): M50.30 - Other cervical disc degeneration, unspecified cervical region Status: Acute (5) Hypertension: Code(s): I10 - Essential (primary) hypertension Status: Acute Assessment and Plan: Stable continue home medication (6) Migraine: Code(s): G43.909 - Migraine, unspecified, not intractable, without status migrainosus Status: Acute Assessment and Plan: As needed medication as needed for pain DS: Summary Hospital Course Hospital Course: This is a 71-year-old male that comes from [facility] due to fall patient had osteoarthritis of the right knee and he had a fall total knee arthroscopy.? Patient has a past medical history of bipolar, COPD, coronary artery disease, DVT, hyperlipidemia, hypertension, obstructive sleep apnea treated with a CPAP, and hypokalemia. Patient ambulating 120 feet x 2 withLBQC and SBA/CGA. The patient denies SOB, CP, palpitation, extremity numbness, lightheadedness, dizziness, constipation, diarrhea, chills, or fever. Patient agrees that he is ready for discharge Time Spent with Patient Time attestation: Total time spent providing and/or coordinating discharge services: Exam Narrative: GENERAL morbidly obeseappearing, well-nourished, and in no acute distress. HEAD:Normocephalic, atraumatic. EYES: PERRLA and EOMI. ENT: Nares clear, no rhinorrhea or epistaxis. Mucous membranes moist. NECK: Supple. CHEST: Clear to auscultation. No respiratory distress. HEART: Regular rate and rhythm. No murmur heard. Normal peripheral pulses. ABDOMEN: Soft, nontender, nondistended, normal active bowel sounds. EXTREMITIES: Decreased range of motion. Right knee surgical site no obvious infection noted SKIN: Warm, dry, no rash. NEURO: No focal deficits. Alert and oriented x3. Discharge Plan Discharge Attending physician on discharge: Qasim Singh Discharging Clinician: Hesham Mcgowan Anticipated Discharge Date/Time: 03/31/22 10:15 Patient Disposition: Home Health Service Activity: as tolerated Diet: low sodium Discharge Instructions: 1. Follow up with your provider 2. Take prescription medication as ordered Notify your provider of any signs and symptoms of infection: Fever Foul Odor Discharge Heat at the Site: Increase in Pain: Pus Redness and Swelling Clean wound daily with normal saline or wound welt stitch cleaner Patient Instructions: Antibiotic Form, Warfarin (By mouth) Stand Alone Forms: General Discharge Information Follow-up/Referrals: Alessandra Ricardo MD [Primary Care Provider] - 04/15/22 4:30 pm Discharge Medications: New polyethylene glycol 3350 [Miralax] 17 gram Powder In Packet 17 g PO QAM PRN (Reason: Constipation) 10 Days Qty: 14 0RF tramadol 50 mg Tablet 50 mg PO Q6H PRN (Reason: Pain Rated 4-6) Qty: 15 0RF docusate sodium 100 mg Capsule 100 mg PO Q12H PRN (Reason: Constipation) Qty: 30 0RF oxycodone [OxyContin] 10 mg Tablet,Oral Only,Ext.Rel.12 Hr 10 mg PO Q12HR Qty: 10 0RF Continued ipratropium-albuterol 0.5 mg-3 mg(2.5 mg base)/3 mL Solution For Nebulization 3 ml INHALATION Q6H PRN (Reason: Wheezing) carvedilol [Coreg] 3.125 mg Tablet
[2022-03-31] MEDS: DOXYCYCLINE HYCLATE 100 MG TABLET PO (11:03)
[2022-03-31 16:00] VITALS: BP 122/68; PULSE 61; RESP 20; TEMP 36.6; O2SAT 95
--- NOTE | 2022-03-31 17:35 | PC.NURSE ---
Patient discharged home with home health and prescriptions provided, discharge instructions given, patient states understanding. Transported by daughter via personal vehicle.
--- NOTE | 2022-04-06 10:02 | PC.NURSE ---
Pt states he received and understood the discharge instructions. Pt also states I had good care .
== END 2022-03-31 17:35 | disposition home health service (06) | DRG 561 ==
PROVIDERS: Nurse Practitioner; Admitting Provider Internal Medicine; PCP Internal Medicine; Visit Provider Internal Medicine
DX: Z47.1 Aftercare following joint replacement surgery (principal); J44.9 Chronic obstructive pulmonary disease, unspecified; I25.10 Atherosclerotic heart disease of native coronary artery without angina pectoris; I10 Essential (primary) hypertension; E78.5 Hyperlipidemia, unspecified; G47.33 Obstructive sleep apnea (adult) (pediatric); M50.30 Other cervical disc degeneration, unspecified cervical region; M51.36 Other intervertebral disc degeneration, lumbar region; F31.9 Bipolar disorder, unspecified; Z96.651 Presence of right artificial knee joint; Z87.891 Personal history of nicotine dependence; Z86.718 Personal history of other venous thrombosis and embolism; Z79.01 Long term (current) use of anticoagulants; Z85.72 Personal history of non-Hodgkin lymphomas
CPT/HCPCS: 36415; 80053; 85027; 97110; 97161; 97165; 97530; 97535; A9270

== ENCOUNTER 2022-04-06 11:15 | Outpatient (NON) | payer MEDICARE, SELFPAY ==
[2022-04-06 11:48] LABS: INR 1.4; Prothrombin Time 14.9 Seconds (9.50-12.10)
== END 2022-04-06 11:16 | disposition home or self-care (01) ==
LOC: CHSHH 11:22
PROVIDERS: Visit Provider Internal Medicine
DX: Z79.01 Long term (current) use of anticoagulants (principal)
CPT/HCPCS: 36415; 85610

== ENCOUNTER 2022-04-10 11:01 | Outpatient (NON) | payer MEDICARE, SELFPAY ==
[2022-04-10 11:33] LABS: INR 2.3; Prothrombin Time 23.3 Seconds (9.50-12.10)
== END 2022-04-10 11:02 | disposition home or self-care (01) ==
LOC: CHSLAB 11:04
PROVIDERS: Visit Provider Internal Medicine
DX: Z79.01 Long term (current) use of anticoagulants (principal)
CPT/HCPCS: 36415; 85610

== ENCOUNTER 2022-04-13 12:19 | Outpatient (NON) | payer MEDICARE, SELFPAY ==
[2022-04-13 12:56] LABS: Basophils Absolute Auto 0.04 K/mm3 (0.00-0.10); Basophils Percent Auto 0.6 % (0.0-1.0); Eosinophils Absolute Auto 0.11 K/mm3 (0.02-0.50); Eosinophils Percent Auto 1.7 % (1.0-6.0); Hematocrit 40.2 % (37.0-46.0); Hemoglobin 12.8 g/dL (12.4-15.3); Immature Granulocyte Absolute 0.03 K/mm3 (0.00-0.00); Immature Granulocyte Percent A 0.5 % (0.0-0.0); Lymphocytes Absolute Auto 1.13 K/mm3 (1.10-4.50); Mean Corpuscular HGB Conc 31.8 g/dL (32.0-36.0); Mean Corpuscular Hemoglobin 28.8 pg (27.0-31.0); Mean Corpuscular Volume 90.5 fL (78.0-102.0); Mean Platelet Volume 10.5 fl (8.7-11.0); Monocytes Absolute Auto 0.58 K/mm3 (0.10-0.90); Monocytes Percent Auto 8.7 % (2.0-11.0); Neutrophils Absolute Auto 4.7 K/mm3 (1.7-7.2); Neutrophils Percent Auto 71.5 % (50.0-70.0); Platelet Count Result 201 K/mm3 (150-420); Red Blood Count 4.44 M/mm3 (4.70-6.10); Red Cell Distribution Width 14.2 % (11.6-14.4); White Blood Count 6.6 K/mm3 (4.8-10.8)
[2022-04-13 13:03] LABS: INR 2.7; Prothrombin Time 27.3 Seconds (9.50-12.10)
== END 2022-04-13 12:20 | disposition home or self-care (01) ==
LOC: CHSLAB 12:20
PROVIDERS: Visit Provider Internal Medicine
DX: Z79.01 Long term (current) use of anticoagulants (principal)
CPT/HCPCS: 85025; 85610

== ENCOUNTER 2022-04-24 09:28 | Outpatient (RCR) | payer MEDICARE, BC, SELFPAY ==
--- NOTE | 2022-04-24 09:04 | PTOPEVAL ---
Thank you for referring Delfin Cavazos to [facility].? The patient is scheduled to be seen for therapy? 2x/week for 10 visits. Please review, sign, date and return this plan of care NIRU. I agree with and certify that the following plan of care is medically necessary. Referring Physician Date Admitting Provider: Attending Provider: Alessandra Ricardo MD Referring Provider: *PT Outpatient Evaluation Start: 04/24/22 06:58 Freq: Status: Active Protocol: Document 04/24/22 07:59 [facility] (Rec: 04/24/22 09:02 [facility] [id number]) Therapy Assessment Status Assessment Status Assessment Status Evaluation Outpatient Past Medical History Neurological History Hx Migraine Yes Cardiovascular History Hx Atrial Fibrillation Yes Hx Coronary Stent Yes: 2 placed 2020 Hx Deep Vein Thrombosis Yes Hx Hypercholesterolemia Yes Hx Hypertension Yes Hx Other Cardiac Disorders Yes: SVT Respiratory History Hx Chronic Obstructive Pulmonary Disease Yes (COPD) Hx Sleep Apnea Yes: wears cpap from home. Gastrointestinal History Hx Hemorrhoids Yes Genitourinary History Hx Benign Prostatic Hyperplasia Yes Musculoskeletal History Hx Arthritis Yes Hx Back Pain Yes Hx Joint Replacement Yes: Right knee replacement Hx Orthopedic Surgery Yes: SHOULDER, TIBIA Hematological History Hx Hematological Disorders No Significant History Endocrine History Hx Diabetes Yes: has history of, not on any medication now. HEENT History Hx Other HEENT Disorders Yes: DOZIER'S Integumentary History Hx Skin Disorders No Significant History Reproductive History Hx Reproductive Disorders No Significant History Psychosocial History Hx Anxiety Yes Hx Bipolar Disorder Yes Hx Depression Yes Pain History Has Past Pain Affected Your Daily Life Yes Anesthesia History Hx Anesthesia Reactions No Significant History Other History Hx Cancer Yes: non-hodgekins lymphoma Hx Chemotherapy Yes Evaluation Information Problem Diagnosis R TKA Onset 03/18/22 Subjective Information Pt received R TKA on 03/18/22. Query Text:As Reported By Patient/ R knee had been giving him Family trouble for over 5 years, now his L knee is having trouble. Unsure if he will have surgery on his L knee due to difficulty with current R knee surgery. Pain is right inside
--- NOTE | 2022-06-10 14:14 | PTOPEVAL ---
Thank you for referring Delfin Cavazos to [facility].? The patient is scheduled to be seen for therapy? ____x/week for ___ weeks. Please review, sign, date and return this plan of care NIRU. I agree with and certify that the following plan of care is medically necessary. Referring Physician Date Admitting Provider: Attending Provider: Alessandra Ricardo MD Referring Provider: *PT Outpatient Evaluation Start: 04/24/22 06:58 Freq: Status: Active Protocol: Document 06/10/22 13:25 [facility] (Rec: 06/10/22 14:13 [facility] [id number]) Therapy Assessment Status Assessment Status Assessment Status Discharge Outpatient Past Medical History Neurological History Hx Migraine Yes Cardiovascular History Hx Atrial Fibrillation Yes Hx Coronary Stent Yes: 2 placed 2020 Hx Deep Vein Thrombosis Yes Hx Hypercholesterolemia Yes Hx Hypertension Yes Hx Other Cardiac Disorders Yes: SVT Respiratory History Hx Chronic Obstructive Pulmonary Disease Yes (COPD) Hx Sleep Apnea Yes: wears cpap from home. Gastrointestinal History Hx Hemorrhoids Yes Genitourinary History Hx Benign Prostatic Hyperplasia Yes Musculoskeletal History Hx Arthritis Yes Hx Back Pain Yes Hx Joint Replacement Yes: Right knee replacement Hx Orthopedic Surgery Yes: SHOULDER, TIBIA Hematological History Hx Hematological Disorders No Significant History Endocrine History Hx Diabetes Yes: has history of, not on any medication now. HEENT History Hx Other HEENT Disorders Yes: DOZIER'S Integumentary History Hx Skin Disorders No Significant History Reproductive History Hx Reproductive Disorders No Significant History Psychosocial History Hx Anxiety Yes Hx Bipolar Disorder Yes Hx Depression Yes Pain History Has Past Pain Affected Your Daily Life Yes Anesthesia History Hx Anesthesia Reactions No Significant History Other History Hx Cancer Yes: non-hodgekins lymphoma Hx Chemotherapy Yes Evaluation Information Problem Diagnosis R TKA Onset 03/18/22 Additional Evaluation Detail LEFS = 65% functionally decline Subjective Information patient reports he is sore in Query Text:As Reported By Patient/ the lower back and L knee. he Family reports the R knee is feeling pretty good. he reports he is having the L knee done later this year. he report she is
== END 2022-06-10 14:46 | disposition home or self-care (01) ==
LOC: CHSPT 09:28
PROVIDERS: PCP Internal Medicine; Visit Provider Internal Medicine
DX: Z96.651 Presence of right artificial knee joint (principal)
CPT/HCPCS: 97110; 97161; 97530

== ENCOUNTER 2022-05-14 08:14 | Outpatient (CLI) | payer MEDICARE, SELFPAY ==
[2022-05-14 08:28] LABS: Basophils Absolute Auto 0.03 K/mm3 (0.00-0.10); Basophils Percent Auto 0.3 % (0.0-1.0); Eosinophils Absolute Auto 0.11 K/mm3 (0.02-0.50); Eosinophils Percent Auto 1.2 % (1.0-6.0); Hemoglobin 14.3 g/dL (12.4-15.3); Immature Granulocyte Absolute 0.05 K/mm3 (0.00-0.00); Immature Granulocyte Percent A 0.6 % (0.0-0.0); Lymphocytes Absolute Auto 1.16 K/mm3 (1.10-4.50); Lymphocytes Percent Auto 13.2 % (18.0-42.0); Mean Corpuscular HGB Conc 32.5 g/dL (32.0-36.0); Mean Corpuscular Hemoglobin 28.7 pg (27.0-31.0); Mean Corpuscular Volume 88.4 fL (78.0-102.0); Mean Platelet Volume 10.7 fl (8.7-11.0); Monocytes Absolute Auto 0.61 K/mm3 (0.10-0.90); Monocytes Percent Auto 6.9 % (2.0-11.0); Neutrophils Absolute Auto 6.9 K/mm3 (1.7-7.2); Neutrophils Percent Auto 77.8 % (50.0-70.0); Platelet Count Result 178 K/mm3 (150-420); Red Blood Count 4.98 M/mm3 (4.70-6.10); Red Cell Distribution Width 14.4 % (11.6-14.4); White Blood Count 8.8 K/mm3 (4.8-10.8)
[2022-05-14 09:27] LABS: Alanine Aminotransferase 30 U/L (16-63); Albumin Level 3.7 g/dL (3.4-5.0); Alkaline Phosphatase 99 U/L (46-116); Anion Gap 10 mmol/L (8-16); Aspartate Amino Transferase 15 U/L (15-37); Bilirubin,Total 0.5 mg/dL (0.00-1.00); Blood Urea Nitrogen 20 mg/dL (7-18); Carbon Dioxide 26 mmol/L (21-32); Chloride 106 mmol/L (98-108); Estimated Glomerular Filt Rate > 60; Glucose 163 mg/dL (70-99); Lactate Dehydrogenase 199 U/L (85-227); Osmolality Calculated 300 mOsm/kg (285-295); Sodium 142 mmol/L (136-145); Total Protein 6.5 g/dL (6.4-8.2)
== END 2022-05-14 08:15 | disposition home or self-care (01) ==
LOC: CHSLAB 08:17
PROVIDERS: PCP Internal Medicine; Visit Provider Internal Medicine Hematology & Oncology
DX: C85.10 Unspecified B-cell lymphoma, unspecified site (principal)
CPT/HCPCS: 36415; 80053; 83615; 85025

== ENCOUNTER 2022-05-22 09:00 | Outpatient (CLI) | payer MEDICARE, SELFPAY ==
[2022-05-22 09:13] LABS: Basophils Absolute Auto 0.04 K/mm3 (0.00-0.10); Basophils Percent Auto 0.6 % (0.0-1.0); Eosinophils Absolute Auto 0.11 K/mm3 (0.02-0.50); Eosinophils Percent Auto 1.5 % (1.0-6.0); Hematocrit 43.5 % (37.0-46.0); Hemoglobin 14.1 g/dL (12.4-15.3); Immature Granulocyte Absolute 0.03 K/mm3 (0.00-0.00); Immature Granulocyte Percent A 0.4 % (0.0-0.0); Lymphocytes Percent Auto 16.6 % (18.0-42.0); Mean Corpuscular HGB Conc 32.4 g/dL (32.0-36.0); Mean Corpuscular Hemoglobin 28.5 pg (27.0-31.0); Mean Corpuscular Volume 87.9 fL (78.0-102.0); Mean Platelet Volume 10.6 fl (8.7-11.0); Monocytes Absolute Auto 0.61 K/mm3 (0.10-0.90); Monocytes Percent Auto 8.4 % (2.0-11.0); Neutrophils Absolute Auto 5.3 K/mm3 (1.7-7.2); Neutrophils Percent Auto 72.5 % (50.0-70.0); Platelet Count Result 157 K/mm3 (150-420); Red Blood Count 4.95 M/mm3 (4.70-6.10); Red Cell Distribution Width 14.4 % (11.6-14.4); White Blood Count 7.3 K/mm3 (4.8-10.8)
[2022-05-22 09:31] LABS: Creatinine Urine 14.49 mg/dL (40-278); MALB Creatinine Ratio 89.7 mg/g (0-30); Microalbumin Urine Random < 13.0 mg/L
[2022-05-22 09:38] LABS: Appearance Urine Clear (Clear); Bilirubin Urine Negative (Negative); Color Urine Light Yellow (Yellow); Glucose Urine UA Negative (Negative); Ketones Urine Negative (Negative); Leukocyte Esterase Ur Negative (Negative); Nitrate Urine Negative (Negative); Protein Urine Negative (Negative); Urobilinogen Urine 0.2 mg/dL (0.2-1.0)
[2022-05-22 09:47] LABS: Add Urine Microscopic? YES; Bacteria Urine Trace /hpf; Blood Urine Trace-Intact (Negative); RBC Urine 0-2 /hpf (0-2); Squamous Epithelial Cell Urine Rare /hpf (Few); WBC Urine None seen /hpf (0-3)
[2022-05-22 10:02] LABS: Alanine Aminotransferase 30 U/L (16-63); Albumin Level 3.6 g/dL (3.4-5.0); Alkaline Phosphatase 87 U/L (46-116); Anion Gap 7 mmol/L (8-16); Aspartate Amino Transferase 17 U/L (15-37); Bilirubin,Total 0.4 mg/dL (0.00-1.00); Blood Urea Nitrogen 17 mg/dL (7-18); Calcium 9.1 mg/dL (8.5-10.1); Carbon Dioxide 28 mmol/L (21-32); Chloride 108 mmol/L (98-108); Cholesterol 150 mg/dL (0-200); Estimated Glomerular Filt Rate > 60; Free T3 2.46 pg/mL (2.18-3.98); Free T4 Free Thyroxine 0.96 ng/dL (0.76-1.46); Glucose 130 mg/dL (70-99); HDL Direct 48 mg/dL (40-60); LDL Cholesterol Calculated 73 mg/dL (<130); NT Pro B Type Natriuretic Pept 321 pg/mL (0-125); Osmolality Calculated 299 mOsm/kg (285-295); Potassium 3.9 mmol/L (3.5-5.1); Sodium 143 mmol/L (136-145); Thyroid Stimulating Hormone 1.61 uIU/mL (0.36-3.74); Total Protein 6.7 g/dL (6.4-8.2); Triglycerides 144 mg/dL (0-150); Vitamin B12 282 pg/mL (193-986)
== END 2022-05-22 09:01 | disposition home or self-care (01) ==
LOC: CHSLAB 09:01
PROVIDERS: PCP Internal Medicine; Visit Provider Internal Medicine
DX: E78.2 Mixed hyperlipidemia (principal); E11.40 Type 2 diabetes mellitus with diabetic neuropathy, unspecified; I10 Essential (primary) hypertension; G62.9 Polyneuropathy, unspecified; C85.10 Unspecified B-cell lymphoma, unspecified site; I50.9 Heart failure, unspecified
CPT/HCPCS: 36415; 80053; 80061; 81001; 82043; 82607; 83036; 83880; 84439; 84443; 84481; 85025

== ENCOUNTER 2022-08-10 03:30 | Emergency (ER) | payer MEDICARE, BC, SELFPAY ==
--- NOTE | ~2022-08-10 | XR_ITS ---
EXAMINATION: XR knee RT 2V DATE: 08/10/2022 04:06 INDICATION: Right knee feels out of place post arthroplasty several months prior. TECHNIQUE: AP and crosstable lateral views of the right were obtained. COMPARISON: 03/25/2021 FINDINGS: Interval as well as a right total knee arthroplasty with patellar resurfacing which appears well seat ed with no periprosthetic lucency to suggest loosening or infection. There appears to be some lateral subluxation of the patella with a greater than anticipated degree of patellar tilt on the lateral ra diograph. There are couple small bone fragments projecting over a moderate-sized knee joint effusion at the suprapatellar pouch. Suggestion of a possible donor site along the cephalad rim of the patella which could represent an avulsion fracture of the quadriceps insertion. No other lesions suspicious for fracture identified. Atherosclerotic calcifications at the distal thigh, popliteal fossa and prox imal calf. IMPRESSION: 1. Interval right total knee arthroplasty with suggestion of slight malalignment of the patella and p ossible avulsion fracture at the proximal pole. Recommend correlation with any prior postoperative im aging and consider CT for further evaluation. Dr. Hernandez discussed these findings with Dr. Tejada at 8:30 AM. Reviewed, dictated and finalized at location A. IMPRESSION: 1. Interval right total knee arthroplasty with suggestion of slight malalignmen t of the patella and possible avulsion fracture at the proximal pole. Recommend correlation with any prior postoperative imaging and consider CT for further e valuation. Dr. Hernandez discussed these findings with Dr. Tejada at 8:30 AM.
[2022-08-10 03:36] VITALS: BP 157/80; PULSE 78; RESP 20; TEMP 36.1; O2SAT 96
--- NOTE | 2022-08-10 03:43 | PC.NURSE ---
patient stated norco and vicodin do not work needs dilaudid
--- NOTE | 2022-08-10 04:09 | ED.EXTPRO ---
HPI - Extremity Problem General Chief complaint: Extremity Problem,Nontraumatic Stated complaint: Knee pain Source: patient and RN notes reviewed Mode of arrival: ambulatory Limitations: no limitations History of Present Illness Complaint: joint swelling Onset (ago): day(s) Pain Consistency: constant Location: right and knee Quality: burning, sharp and constant Radiation: none Relieving factors: rest Exacerbating factors: weight bearing and walking Associated symptoms: denies other symptoms Related Data Home Medications Medication Instructions Recorded Confirmed aripiprazole 10 mg disintegrating 10 mg PO DAILY 10/12/19 08/10/22 tablet carvedilol 3.125 mg tablet (Coreg) 25 mg PO BID 10/12/19 08/10/22 atorvastatin 20 mg tablet (Lipitor) 20 mg PO DAILY 03/20/22 08/10/22 clopidogrel 75 mg tablet (Plavix) 75 mg PO DAILY 03/20/22 08/10/22 doxycycline hyclate 100 mg tablet 100 mg PO DAILY 03/20/22 08/10/22 hydrochlorothiazide 12.5 mg tablet 12.5 mg PO DAILY 03/20/22 08/10/22 melatonin 5 mg tablet 5 mg PO HS 03/20/22 08/10/22 potassium chloride 10 mEq 10 meq PO BID 03/20/22 08/10/22 tablet,extended release (Klor-Con) tamsulosin 0.4 mg capsule (Flomax) 0.4 mg PO DAILY 03/20/22 08/10/22 trazodone 100 mg tablet 100 mg PO HS 03/20/22 08/10/22 warfarin 10 mg tablet 10 mg PO USEASDIRECTD 03/20/22 08/10/22 Allergies Allergy/AdvReac Type Severity Reaction Status Date / Time No Known Allergies Allergy Mild Unverified 08/24/17 14:42 Review of Systems Review of Systems: All systems reviewed & are unremarkable except as noted in HPI and below Constitutional: Constitutional: Denies chills and Denies fever(s) PMFSH Past Medical History Medical History DDD (degenerative disc disease), cervical DDD (degenerative disc disease), lumbar Depression DVT (deep venous thrombosis) Hyperlipidemia Hypertension Migraine Non-Hodgkin lymphoma Surgical History Surgical History (Updated 08/10/22 @ 04:17 by Jc Irizarry MD) History of laparotomy History of right knee joint replacement Social History Social History Social History: Lives alone in an apartment Smoking packs per day: 1 Smoking cigarettes per day: 20.0 Years smoked: 55 Smoking pack-years: 55.00 Smoking status: Former smoker Tobacco type: cigarettes Alcohol intake: former Substance use: current Substance use type: marijuana Spiritual care concerns: No Exam Const: General: healthy appearing, no acute distress and alert Nutritional Appearance: well nourished and obese Orientation/consciousness: patient oriented x3 Limitations: no limitations HENMT: Head: normal to inspection Ears: external ears normal Eyes: Conjunctivae: conjunctivae normal Pupils: Equal, round and reactive pupils present EOM: EOMs intact bilaterally Neck: Neck: normal visual inspection Resp: Effort & Inspection: normal respiratory effort Auscultation: clear to auscultation bilaterally Cardio: Rate: regular rate Rhythm: regular rhythm GI: GI Palp: Yes Soft to palpation and No Tenderness to palpation present (GI) Auscultation: normal bowel sounds Back/Spine/Pelvis: Cervical Spine: cervical ROM normal Thoracic/Lumbar Spine: thoraco-lumbar ROM normal Skin: General skin exam: normal color Rashes: no rashes Neuro: General: patient oriented x3, moves all extremities, no focal motor deficits and CN's II-XI intact bilaterally Speech: normal speech Extrem: General: normal exam except as noted and no clubbing, cyanosis or edema Right lower extremity: knee Details: tenderness Location: of the pre-patellar area, swelling Location: of the patella, warmth (mild) Location: anteriorly and superiorly and other ( effusion no erythema) Psych: Mental Status: mental status grossly normal Affect: normal affect Attitude: cooperative Course Vital Signs Vital signs:
[2022-08-10] MEDS: LIDOCAINE HCL 1% LOCAL INJ 10 ML VIAL INFILTRATE (04:44)
[2022-08-10] MEDS: HYDROcodone/acetaminophen (*CRX) 5-325 MG TABLET 1 TAB PO (04:47)
--- NOTE | 2022-08-10 04:53 | PC.NURSE ---
MD prepped area with betadine, and removed 45ml bloody fluid from knee. 20ml sent to lab for cultures
[2022-08-10 05:29] VITALS: BP 140/90; PULSE 80; RESP 18; TEMP 37.2; O2SAT 95
--- NOTE | 2022-08-10 15:48 | PC.NURSE ---
RADIOLOGY DISCREPANCY WAS CALLED TO [facility] THIS AM. REPORT OF POSSIBLE AVULSION FX. DR CROW WAS NOTIFIED AT HOME AND REQUESTS PMD ORDER THE CT OF THE KNEE OR HAVE PT TO RETURN TO ER FOR FURTHER EVALUATION. DR NOONAN'S OFFICE WAS NOTIFIED AT 1135 THIS AM, THEY ARE TO RETURN CALL ONCE THEY SPEAK WITH DR NOONAN TO DETERMINE COURSE OF TREATMENT. CALLED DR NOONAN'S OFFICE BACK AT THIS TIME DUE TO NO RETURN CALL OF YET, PT HAS ALREADY GOTTEN THE CT AND IS CURRENTLY IN DR NOONAN'S OFFICE, WILL BE REFERRED TO ORTHO.
--- NOTE | 2022-08-21 12:44 | PC.NURSE ---
ANAEROBIC FINAL RESULTS: GRAM STAIN: RARE, WHITE BLOOD CELLS SEEN, NO ORGANISMS SEEN, NO ANAEROBES ISOLATED. AEROBIC FINAL RESULTS: FINAL NO GROWTH PER DR CROW NO FURTHER TX NEEDED.
== END 2022-08-10 05:30 | disposition home or self-care (01) ==
PROVIDERS: Emergency Provider Emergency Medicine; PCP Internal Medicine
DX: M25.561 Pain in right knee (principal); E78.5 Hyperlipidemia, unspecified; I10 Essential (primary) hypertension; Z85.72 Personal history of non-Hodgkin lymphomas; Z87.891 Personal history of nicotine dependence
CPT/HCPCS: 20605; 73560; 73700; 87070; 87075; 87205; 99283; A9270

== ENCOUNTER 2022-08-10 14:14 | Outpatient (CLI) | payer MEDICARE, BC, SELFPAY ==
--- NOTE | ~2022-08-10 | CT_ITS ---
EXAMINATION: CT knee RT wo con DATE: 08/10/2022 14:41 INDICATION: Right knee pain. TECHNIQUE: Computed tomography (CT) of the right knee was performed without intravenous contrast. Aut omated exposure control and iterative reconstruction technique were employed. The dose-length product was 576.25 mGy-cm. COMPARISON: Right knee radiographs 08/10/2022, 03/25/2022 FINDINGS: There is lateral tilt and lateral subluxation of the patella. There is a total right knee a rthroplasty with patellar resurfacing. No periprosthetic lucencies to suggest loosening or infection. There is thickening of the patellar tendon with fragments of heterotopic ossification. There is a sm all knee joint effusion. There is moderate fatty atrophy of the anterior thigh musculature. There is moderate fatty atrophy of long head of biceps femoris muscle. IMPRESSION: 1. Thickening and heterotopic ossification of the quadriceps tendon with lateral tilt and lateral sub luxation of the patella, likely at least a partial quadriceps tendon tear. 2. Moderate fatty atrophy of the anterior thigh musculature. 3. Total right knee arthroplasty. 4. Small knee joint effusion. Reviewed, dictated and finalized at location B. IMPRESSION: 1. Thickening and heterotopic ossification of the quadriceps tendon with latera l tilt and lateral subluxation of the patella, likely at least a partial aisha ceps tendon tear. 2. Moderate fatty atrophy of the anterior thigh musculature. 3. Total right knee arthroplasty. 4. Small knee joint effusion.
== END 2022-08-10 14:15 | disposition home or self-care (01) ==
LOC: CHSIMG 14:17
PROVIDERS: PCP Internal Medicine; Visit Provider Internal Medicine
DX: M25.561 Pain in right knee (principal)
CPT/HCPCS: 73700

== ENCOUNTER 2024-04-28 15:28 | Outpatient (CLI) | payer MEDICARE, BC, MEDICAID, SELFPAY ==
--- NOTE | ~2024-04-28 | XR_ITS ---
EXAMINATION: XR thoracic spine 3V DATE: 04/28/2024 15:59 INDICATION: Mid and low back pain. Fall. TECHNIQUE: 3 views of thoracic spine were obtained. COMPARISON: chest CT 10/06/2021 FINDINGS: There is 7 degrees levocurvature of upper thoracic spine, 8 degrees dextrocurvature of mid thoracic spine, and 8 degrees levocurvature of the lower thoracic spine. There is lordosis of lower t horacic spine. There is mild chronic anterior wedging of T1-T3, T11, and T12 vertebral bodies. There is decreased disc height at most levels, severe in lower thoracic spine. IMPRESSION: 1. Severe thoracic spondylosis. Reviewed, dictated and finalized at location A.
--- NOTE | ~2024-04-28 | XR_ITS ---
EXAMINATION: XR lumbar spine 2-3V DATE: 04/28/2024 15:59 INDICATION: Mid and low back pain. Fall. TECHNIQUE: 3 views of lumbar spine were obtained. COMPARISON: Lumbar spine radiographs 12/16/2011 FINDINGS: There is 18 degrees dextroscoliosis of lumbar spine. There are chronic bilateral L5 pars de fects. There is 19 mm anterolisthesis of L5 on S1. There are chronic compression fractures of T11, T1 2, and L1. There is 3 mm retrolisthesis of L1 on L2 and L2 on L3. There is moderately decreased disc height at T12-L1 and severely decreased disc height from L1-L2 through L5-S1. There is multilevel sev ere facet joint osteoarthritis. Surgical clips overlie the abdomen. IMPRESSION: 1. Severe lumbar spondylosis. 2. Lumbar dextroscoliosis. 3. Chronic bilateral L5 pars defects with grade 3 anterolisthesis of L5 on S1. Reviewed, dictated and finalized at location A.
== END 2024-04-28 15:29 | disposition home or self-care (01) ==
PROVIDERS: PCP Internal Medicine; Visit Provider Internal Medicine
DX: M54.50 Low back pain, unspecified (principal); M43.04 Spondylolysis, thoracic region; M43.06 Spondylolysis, lumbar region; M41.86 Other forms of scoliosis, lumbar region; M53.86 Other specified dorsopathies, lumbar region
CPT/HCPCS: 72072; 72100